=== PATIENT | female | born 1955 | race Caucasian/White ===

== ENCOUNTER → 2016-09-07 | Outpatient (CLI) | payer OTHER ==
--- NOTE | 2016-09-07 16:22 | RADIOLOGY REPORT (SQ) ---
EXAM DESCRIPTION: FOOT LEFT COMPLETE COMPLETED DATE/TIME: 09/07/2016 4:02 pm REASON FOR STUDY: PAIN IN LEFT FOOT M79.672 PAIN IN LEFT FOOT COMPARISON: None. NUMBER OF VIEWS: Three views. TECHNIQUE: AP, lateral and oblique radiographic images acquired of the left foot. LIMITATIONS: None. FINDINGS: MINERALIZATION: Normal. BONES: No acute fracture or dislocation. No worrisome bone lesions. JOINTS: No effusions. SOFT TISSUES: No soft tissue swelling. No foreign body. OTHER: No other significant finding. IMPRESSION: NEGATIVE STUDY OF THE LEFT FOOT. NO RADIOGRAPHIC EVIDENCE OF ACUTE INJURY. TECHNICAL DOCUMENTATION: JOB ID: [id number] [employer]- All Rights Reserved
[2016-09-07 17:01] LABS: ANION GAP 13 (5-19); BLOOD UREA NITROGEN 14 mg/dL (7-20); CALCIUM 8.5 mg/dL (8.4-10.2); CARBON DIOXIDE 25 mmol/L (22-30); CHLORIDE 106 mmol/L (98-107); GLUCOSE 182 mg/dL (75-110); SODIUM 143.7 mmol/L (137-145); URIC ACID 8.8 mg/dL (2.5-7.5)
[2016-09-07 18:11] LABS: POTASSIUM 2.9 mmol/L (3.6-5.0)
== END ==
LOC: OD 12:56
PROVIDERS: ATTEND Physician Assistant
DX: E87.6 Hypokalemia (principal); M79.672 Pain in left foot; R60.9 Edema, unspecified
CPT/HCPCS: 36415; 80048; 83735; 84550

== ENCOUNTER → 2016-09-11 | Outpatient (CLI) | payer OTHER ==
[2016-09-11 08:34] LABS: ANION GAP 11 (5-19); BLOOD UREA NITROGEN 14 mg/dL (7-20); CALCIUM 8.5 mg/dL (8.4-10.2); CARBON DIOXIDE 23 mmol/L (22-30); CHLORIDE 107 mmol/L (98-107); GLUCOSE 137 mg/dL (75-110); POTASSIUM 3.7 mmol/L (3.6-5.0); SODIUM 141.4 mmol/L (137-145); URIC ACID 7.9 mg/dL (2.5-7.5)
[2016-09-11 12:44] LABS: ADD ON TESTING BLD IN LAB ACKNOWLEDGE
== END ==
LOC: OD 07:22
PROVIDERS: ATTEND Physician Assistant
DX: E83.42 Hypomagnesemia (principal); E87.6 Hypokalemia; E79.0 Hyperuricemia without signs of inflammatory arthritis and tophaceous disease
CPT/HCPCS: 36415; 80048; 83735; 84550

== ENCOUNTER → 2016-09-14 | Outpatient (CLI) | payer OTHER ==
[2016-09-14 11:02] LABS: ANION GAP 11 (5-19); BLOOD UREA NITROGEN 11 mg/dL (7-20); CALCIUM 8.6 mg/dL (8.4-10.2); CARBON DIOXIDE 18 mmol/L (22-30); CHLORIDE 113 mmol/L (98-107); CREATININE RESULT 1.13 mg/dL (0.52-1.25); GLUCOSE 111 mg/dL (75-110); SODIUM 142.4 mmol/L (137-145)
[2016-09-14 11:18] LABS: MAGNESIUM 1.2 mg/dL (1.6-2.3)
== END ==
LOC: OD 09:50
PROVIDERS: ATTEND Physician Assistant
DX: E83.42 Hypomagnesemia (principal); E87.6 Hypokalemia
CPT/HCPCS: 36415; 80048; 83735

== ENCOUNTER → 2016-09-21 | Outpatient (CLI) | payer OTHER ==
[2016-09-21 11:09] LABS: ANION GAP 9 (5-19); BLOOD UREA NITROGEN 13 mg/dL (7-20); CALCIUM 8.4 mg/dL (8.4-10.2); CARBON DIOXIDE 22 mmol/L (22-30); CHLORIDE 113 mmol/L (98-107); CREATININE RESULT 1.16 mg/dL (0.52-1.25); GLUCOSE 75 mg/dL (75-110); SODIUM 143.9 mmol/L (137-145)
[2016-09-21 11:26] LABS: MAGNESIUM 1.2 mg/dL (1.6-2.3)
== END ==
LOC: OD 09:43
PROVIDERS: ATTEND Physician Assistant
DX: E55.9 Vitamin D deficiency, unspecified (principal); E83.42 Hypomagnesemia
CPT/HCPCS: 36415; 80048; 82306; 83735

== ENCOUNTER 2016-10-09 11:04 | Day surgery (SDC) | payer OTHER ==
[~2016-10-09 11:04] MED LIST: PROPOFOL INJ 200 MG/20 ML VIAL IV ONE
--- NOTE | 2016-10-09 12:56 | Operative Report ---
Operative Report DATE OF SURGERY: 10/09/16 Operative Report: The risks, benefits and alternatives of the procedure including risks of bleeding, perforation requiring surgery are explained to the patient detail and informed consent was obtained. Patient was taken back to the endoscopy suite and placed in the left, lateral decubital position. Timeout was called. Propofol medications administered. A rectal examination was done which did not reveal any masses, tears or fissures.. An Olympus videoscope was inserted into the patient's rectum. The scope was then carefully advanced all the way to the cecum. The cecum was identified by the usual anatomical landmarks including the ileocecal valve, and the appendiceal office. Prep is good. Photodocumentation was obtained. The scope was then sequentially pulled back via the various segments of the colon including the ascending colon, hepatic flexure, transverse colon, splenic flexure, descending colon, and finding to the rectosigmoid portions of the colon. Retroflexion maneuver was performed. PREOPERATIVE DIAGNOSIS: Rule out Crohn's disease. Diarrhea POSTOPERATIVE DIAGNOSIS: Mild terminal ileitis status post biopsy. Mucosal specimens obtained in the ascending colon area to rule out microscopic, lymphocytic, collagenous colitis. OPERATION: Colonoscopy with biopsy SURGEON: JEM ALAN ANESTHESIA: LMAC TISSUE REMOVED OR ALTERED: As noted above. COMPLICATIONS: None. ESTIMATED BLOOD LOSS: None. INTRAOPERATIVE FINDINGS: As noted above. PROCEDURE: Patient tolerated the procedure well. No immediate postprocedure complications are noted. Patient discharged in good condition. Discharge date 10/09/2016. Discharge diet: Regular. Discharge activity: Regular. 2-3 week follow-up to discuss findings. Patient is instructed to call the office or proceed to the emergency room should there be any further problems or questions. We will wait on pathology.
[2016-10-09 13:02] VITALS: BP 115/64
== END 2016-10-09 13:00 | disposition home or self-care (01) ==
LOC: END 11:04
PROVIDERS: ATTEND Internal Medicine Gastroenterology
PROC: 0DBF8ZX Excision of Right Large Intestine, Via Natural or Artificial Opening Endoscopic, Diagnostic (ICD-10-PCS; 2016-10-09)
PROC: 0DBB8ZX Excision of Ileum, Via Natural or Artificial Opening Endoscopic, Diagnostic (ICD-10-PCS; principal; 2016-10-09 14:00)
DX: K52.9 Noninfective gastroenteritis and colitis, unspecified (principal); K50.119 Crohn's disease of large intestine with unspecified complications; F17.210 Nicotine dependence, cigarettes, uncomplicated; I10 Essential (primary) hypertension; M19.90 Unspecified osteoarthritis, unspecified site; Z79.899 Other long term (current) drug therapy; Z88.1 Allergy status to other antibiotic agents
CPT/HCPCS: 45380; 88305 ×2; J2704; 810

== ENCOUNTER → 2016-10-12 | Outpatient (CLI) | payer OTHER ==
[2016-10-12 12:21] LABS: ANION GAP 13 (5-19); BLOOD UREA NITROGEN 20 mg/dL (7-20); CALCIUM 7.8 mg/dL (8.4-10.2); CARBON DIOXIDE 21 mmol/L (22-30); CHLORIDE 110 mmol/L (98-107); CREATININE RESULT 1.64 mg/dL (0.52-1.25); GLUCOSE 98 mg/dL (75-110); POTASSIUM 3.6 mmol/L (3.6-5.0); SODIUM 143.7 mmol/L (137-145); URIC ACID 7.7 mg/dL (2.5-7.5)
[2016-10-12 13:25] LABS: MAGNESIUM 0.9 mg/dL (1.6-2.3)
== END ==
LOC: OD 10:48
PROVIDERS: ATTEND Physician Assistant
DX: E55.9 Vitamin D deficiency, unspecified (principal); E79.0 Hyperuricemia without signs of inflammatory arthritis and tophaceous disease; E87.6 Hypokalemia
CPT/HCPCS: 36415; 80048; 82306; 83735; 84550

== ENCOUNTER → 2016-10-19 | Outpatient (CLI) | payer OTHER ==
[2016-10-19 12:39] LABS: ANION GAP 10 (5-19); BLOOD UREA NITROGEN 20 mg/dL (7-20); CALCIUM 7.8 mg/dL (8.4-10.2); CARBON DIOXIDE 28 mmol/L (22-30); CHLORIDE 105 mmol/L (98-107); CREATININE RESULT 1.12 mg/dL (0.52-1.25); GLUCOSE 81 mg/dL (75-110); POTASSIUM 3.6 mmol/L (3.6-5.0); SODIUM 143.3 mmol/L (137-145); URIC ACID 6.4 mg/dL (2.5-7.5)
[2016-10-19 13:01] LABS: MAGNESIUM 1.2 mg/dL (1.6-2.3)
== END ==
LOC: OD 10:57
PROVIDERS: ATTEND Physician Assistant
DX: E87.6 Hypokalemia (principal); E83.42 Hypomagnesemia
CPT/HCPCS: 36415; 80048; 83735; 84550

== ENCOUNTER → 2016-10-30 | Outpatient (CLI) | payer OTHER ==
[2016-10-30 08:36] LABS: ANION GAP 10 (5-19); BLOOD UREA NITROGEN 18 mg/dL (7-20); CALCIUM 8.9 mg/dL (8.4-10.2); CARBON DIOXIDE 26 mmol/L (22-30); CHLORIDE 102 mmol/L (98-107); CREATININE RESULT 1.18 mg/dL (0.52-1.25); GLUCOSE 112 mg/dL (75-110); MAGNESIUM 2.4 mg/dL (1.6-2.3); POTASSIUM 3.9 mmol/L (3.6-5.0); SODIUM 137.8 mmol/L (137-145)
== END ==
LOC: OD 07:31
PROVIDERS: ATTEND Physician Assistant
DX: E87.6 Hypokalemia (principal); E83.42 Hypomagnesemia; E83.51 Hypocalcemia
CPT/HCPCS: 36415; 80048; 83735; 83970

== ENCOUNTER → 2016-11-06 | Outpatient (CLI) | payer OTHER ==
[2016-11-06 13:14] LABS: ANION GAP 12 (5-19); BLOOD UREA NITROGEN 21 mg/dL (7-20); CALCIUM 9.6 mg/dL (8.4-10.2); CARBON DIOXIDE 29 mmol/L (22-30); CHLORIDE 101 mmol/L (98-107); GLUCOSE 125 mg/dL (75-110); PHOSPHORUS 3.2 mg/dL (2.5-4.5); URIC ACID 7.8 mg/dL (2.5-7.5)
== END ==
LOC: OD 11:39
PROVIDERS: ATTEND Physician Assistant
DX: E79.0 Hyperuricemia without signs of inflammatory arthritis and tophaceous disease (principal); E83.51 Hypocalcemia; E83.42 Hypomagnesemia; E87.6 Hypokalemia
CPT/HCPCS: 36415; 80048; 83735; 84100; 84550

== ENCOUNTER → 2016-12-29 | Outpatient (CLI) | payer OTHER ==
[2016-12-29 14:55] LABS: ABSOLUTE BASOPHILS # (AUTO) 0.1 10^3/uL (0.0-0.2); ABSOLUTE EOSINOPHILS # (AUTO) 0.3 10^3/uL (0.0-0.6); ABSOLUTE LYMPHOCYTES (AUTO) 2.9 10^3/uL (0.5-4.7); ABSOLUTE MONOCYTES (AUTO) 0.7 10^3/uL (0.1-1.4); ABSOLUTE NEUT (AUTO) 7.9 10^3/uL (1.7-8.2); BASOPHILS % (AUTO) 0.5 % (0-2); EOSINOPHILS % (AUTO) 2.4 % (0-6); HEMOGLOBIN 13.2 g/dL (12.0-15.5); HGB HCT DIFFERENCE -0.4; LYMPHOCYTES % (AUTO) 24.3 % (13-45); MEAN CORPUSCULAR HEMOGLOBIN 30.3 pg (27.0-33.4); MEAN CORPUSCULAR VOLUME 92 fl (80-97); MONOCYTES % (AUTO) 6.2 % (3-13); RED BLOOD COUNT 4.35 10^6/uL (3.72-5.28); RED CELL DISTRIBUTION WIDTH 14.5 % (11.5-14.0); SEGMENTED NEUTROPHILS % (AUTO) 66.6 % (42-78); WHITE BLOOD COUNT 11.9 10^3/uL (4.0-10.5)
[2016-12-29 15:05] LABS: APPEARANCE,URINE SLIGHTLY-CLOUDY; BILIRUBIN,URINE NEGATIVE (NEGATIVE); GLUCOSE, URINE NEGATIVE (NEGATIVE); KETONES,URINE NEGATIVE (NEGATIVE); LEUKOCYTE ESTERASE,URINE NEGATIVE (NEGATIVE); NITRITE,URINE NEGATIVE (NEGATIVE); PROTEIN,URINE NEGATIVE (NEGATIVE); URIC ACID CRYSTALS,URINE FEW /HPF; URINE SPECIFIC GRAVITY 1.018
[2016-12-29 15:14] LABS: ALBUMIN 3.8 g/dL (3.5-5.0); ANION GAP 14 (5-19); BLOOD UREA NITROGEN 17 mg/dL (7-20); CALCIUM 9.1 mg/dL (8.4-10.2); CARBON DIOXIDE 29 mmol/L (22-30); CHLORIDE 100 mmol/L (98-107); GLUCOSE 196 mg/dL (75-110); MAGNESIUM 1.3 mg/dL (1.6-2.3); PHOSPHORUS 3.7 mg/dL (2.5-4.5); POTASSIUM 3.2 mmol/L (3.6-5.0); SODIUM 142.6 mmol/L (137-145)
[2016-12-29 15:20] LABS: URINE CREATININE 147.2 mg/dL (15-278); URINE PROTEIN 11.2 mg/dL (<12)
[2016-12-29 15:37] LABS: ERYTHROCYTE SEDIMENTATION RATE 22 mm/hr (0-30)
[2016-12-31 08:38] LABS: HEPATITIS C VIRUS AB <0.1 s/co ratio (0.0-0.9)
[2016-12-31 16:37] LABS: COMPLEMENT C3 175 mg/dL (82-167); COMPLEMENT C4 38 mg/dL (14-44)
[2017-01-01 07:53] LABS: IMMUNOGLOBULIN A 113 mg/dL (87-352); PTH INTACT 52 pg/mL (15-65)
[2017-01-01 10:55] LABS: GLOMERULAR BASMENT MEMBRANE AB 3 units (0-20)
[2017-01-01 13:38] LABS: A/G RATIO 1.2 (0.7-1.7); ALBUMIN 2 3.2 g/dL (2.9-4.4); ALPHA-1-GLOBULIN 2 0.2 g/dL (0.0-0.4); GAMMA GLOBULIN 0.4 g/dL (0.4-1.8); PROTEIN TOTAL SERUM 5.8 g/dL (6.0-8.5)
[2017-01-01 13:42] LABS: VITAMIN D 25-HYDROXY 37.9 ng/mL (30.0-100.0)
[2017-01-01 15:38] LABS: ALBUMIN UR 37.6 % (.); GAMMA GLOBULIN URINE 27.8 % (.); M-SPIKE % UR Not Observed % (Not Observed)
[2017-01-02 17:37] LABS: ANTIPROTEINASE 3 (PR-3) AB <3.5 U/mL (0.0-3.5); CYTOPLASMIC (C-ANCA) <1:20 titer (Neg:<1:20)
== END ==
LOC: OD 13:58
PROVIDERS: ATTEND Internal Medicine Nephrology
DX: I12.9 Hypertensive chronic kidney disease with stage 1 through stage 4 chronic kidney disease, or unspecified chronic kidney disease (principal); N18.3 Chronic kidney disease, stage 3 (moderate); K51.90 Ulcerative colitis, unspecified, without complications
CPT/HCPCS: 36415; 80048; 81001; 82040; 82306; 82570; 82595; 82784; 83516; 83735; 83970; 84100; 84156; 84165; 84166; 85025; 85652; 86038; 86160; 86256; 86317; 86803; 86804; 87340

== ENCOUNTER 2017-03-15 10:58 | Emergency (ER) | payer OTHER ==
--- NOTE | 2017-03-15 12:01 | ER Document Report ---
ED General - General Chief Complaint: Ankle Injury Stated Complaint: FALL INJURY, RIGHT ANKLE Time Seen by Provider: 03/15/17 11:59 Mode of Arrival: Wheelchair Information source: Patient Notes: Patient is a 61-year-old female who presents with right ankle pain and swelling that occurred around 1000 this morning. She tripped and fell while [place]. She states pain is worse with weight bearing and ambulation. She denies hitting her head or LOC, she is not on any anticoagulants. She has not taken any pain medication. Otherwise doing well. TRAVEL OUTSIDE OF THE [place] IN LAST 30 DAYS: No - Related Data Allergies/Adverse Reactions: ciprofloxacin [Ciprofloxacin] Allergy (Intermediate, Verified 03/15/17 10:59) Flushing erythromycin lactobionate [From Erythrocin] Allergy (Intermediate, Verified 10:59) Flushing nitrofurantoin [From Macrodantin] Allergy (Intermediate, Verified 03/15/17 10:59 ) Difficulty breathing Penicillins Allergy (Intermediate, Verified 03/15/17 10:59) Flushing Past Medical History - General Information source: Patient - Social History Smoking Status: Current Every Day Smoker Chew tobacco use (# tins/day): No Frequency of alcohol use: None Drug Abuse: None Family History: Reviewed & Not Pertinent Patient has suicidal ideation: No Patient has homicidal ideation: No - Past Medical History Cardiac Medical History: Reports: Hx Hypertension Denies: Hx Coronary Artery Disease, Hx Heart Attack Pulmonary Medical History: Denies: Hx Asthma, Hx Bronchitis, Hx COPD, Hx Pneumonia Neurological Medical History: Denies: Hx Cerebrovascular Accident, Hx Seizures Renal/ Medical History: Denies: Hx Peritoneal Dialysis Musculoskeltal Medical History: Reports Hx Arthritis - Ostearthritis-everywhere - Immunizations Hx Diphtheria, Pertussis, Tetanus Vaccination: Yes Review of Systems - Review of Systems Constitutional: See HPI EENT: No symptoms reported Cardiovascular: No symptoms reported Respiratory: No symptoms reported Gastrointestinal: No symptoms reported Genitourinary: No symptoms reported Female Genitourinary: No symptoms reported Musculoskeletal: See HPI Skin: No symptoms reported Hematologic/Lymphatic: No symptoms reported Neurological/Psychological: No symptoms reported Physical Exam - Vital signs Vitals: Temp Pulse Resp BP Pulse Ox 98.5 F 77 16 144/70 H 100 03/15/17 11:04 03/15/17 11:04 03/15/17 11:04 03/15/17 11:04 03/15/17 11:04 - Notes Notes: PHYSICAL EXAM: CONSTITUTIONAL: Alert and oriented, well-appearing and in no acute distress. HENT: Normocephalic, atraumatic. Moist mucous membranes. EYES: Pupils equal round and reactive to light, EOM intact. Sclera anicteric, conjunctiva are normal. No entrapment. NECK: supple without lymphadenopathy. No midline tenderness or paraspinous muscle spasms. No step-offs or deformities. ROM intact. HEART: Regular rate and rhythm without murmurs. LUNGS: CTAB and equal. No wheezes, rales or rhonchi. GI: Normactive bowel sounds. Nontender, non-distended. No organomegaly. no CVAT. BACK: nontender, no paraspinous spasm, 5+/5 strengths, DTRs 2+, SLR -. EXTREMITIES: right ankle - tender to palpation to lateral malleolus with significant non-pitting edema. ROM limited 2/2 pain and swelling. Distal pulses intact. No deformity or ecchymosis. no pitting edema. No cyanosis. Cap Refill < 3 seconds. Abrasions noted to knees bilaterally. NEURO: Cranial nerves grossly intact. Normal sensory/motor exams. PSYCH: Normal mood, normal affect. SKIN: Warm and dry. Normal turgor. No rashes or lesions noted. Course - Re-evaluation Re-evalutation: 03/15/17 12:00 Patient seen and examined. She is alert and oriented, non-toxic in appearance, sitting upright in wheelchair, speaking in full sentences without difficulty. No obvious deformity, distal pulses intact. Given PO pain medication. Will obtain x-rays. 03/15/17 12:40 Reviewed imaging studies. No significant fracture, does show soft tissue swelling. Will give air splint/crutches, discuss RICE instructions and give script for pain medication. Advised to f/u with orthopedics. At this time, will discharge with return precautions and follow-up recommendations. Verbal discharge instructions given at the bedside and opportunity for questions given. Medication warnings reviewed. Patient is in agreement with this plan and has verbalized understanding of return precautions and the need for primary care follow-up in the next 24-72 hours. - Vital Signs Vital signs: Temp Pulse Resp BP Pulse Ox 98.5 F 77 16 144/70 H 100 03/15/17 11:04 03/15/17 11:04 03/15/17 11:04 03/15/17 11:04 03/15/17 11:04 - Diagnostic Test Radiology reviewed: Image reviewed, Reports reviewed Procedures - Immobilization Right Ankle Pre-Proc Neuro Vasc Exam: Normal Immobilizer type: Ankle stirrup Performed by: PCT Post-Proc Neuro Vasc Exam: Normal Alignment checked and good: Yes Discharge - Discharge Clinical Impression: Ankle sprain Qualifiers: Encounter type: initial encounter Involved ligament of ankle: other ligament Laterality: right Qualified Code(s): S93.491A - Sprain of other ligament of right ankle, initial encounter Condition: Stable Disposition: HOME, SELF-CARE Additional Instructions: SPRAIN: Your injury is a sprain. A sprain results from stretching or tearing of the ligaments, usually from a twisting injury. The ligaments will require time and protection in order to heal properly. Many sprains are quite disabling and should be taken seriously. The usual initial treatment of sprains is cold packs, elevation, and rest of the injured area. Your physician has assessed the seriousness of your ligament injury, and has outlined a treatment plan. Understand that this treatment may change, depending on how you progress. If a re-examination was recommended, it is important that you follow up as instructed. Call the doctor any time if there is severe pain, numbness, or loss of function in the injured area. SPRAINED ANKLE: Your sprained ankle results from stretching or tearing of the ligaments which support the ankle. This usually results from twisting the foot inward and under. The ligaments will require time and protection in order to heal properly. Many ankle sprains are quite disabling, and should be taken seriously. The usual treatment for an ankle sprain is cold packs; protection with tape , splints, or wraps; elevation; and staying off the ankle for at least a day. As the ankle improves, you can walk IF it's not painful to bear weight. Sports are best postponed until healing is complete. More serious sprains usually require strengthening exercises after early healing. Your physician has assessed the seriousness of the ligament injury to your ankle. However, the treatment may change, depending on how your ankle progresses. If further exams were recommended, it is important that you follow through. Call the doctor if your foot becomes numb, painful, or severely swollen. ANKLE STIRRUP SPLINT: You are to use an ankle brace called a stirrup splint. This type of brace allows you to place greater stresses on the ankle without risk of re-injury, and is often used for more severe ankle injuries such as avulsion fractures and ligament ruptures. The splint can be worn over a sock or tape. For proper support, wear the splint with a shoe over it. It's important that the splint fit properly. Adjust the heel tension, if needed. If your splint has air bladders, peel back the bottom of each air bladder, then move the Velcro attachment of the heel strap up or down. Air bladder pressure can be adjusted by pulling up the valve at the top, threading the air tube down into the main bladder, then blowing air into the bladder or squeezing it out. The two sides of the stirrup can be moved forward or back on your ankle by changing the attachment of the main straps. If you are unable to use the ankle comfortably in the splint, return for re -evaluation. USE OF CRUTCHES: The doctor has recommended that you not bear weight at this time. You will need to use crutches. Adjust the crutches so the tops come to about two inches under the armpit while you are standing upright. Use your hands -- not your armpits -- to support your weight. To get into a chair, support yourself with one crutch on the injured side. Hold the chair with the other hand, then lower yourself while putting all your weight on the good leg. Going up stairs is `good leg up, step up, then bring up crutches and bad leg.' Down stairs is `bad leg and crutches down, then bring good leg down.' If you develop numbness or swelling in an arm or hand, you are using the crutches incorrectly. Return if you are having any problems with the crutches. ICE & ELEVATION: Apply ice packs frequently against the painful area. Many different schedules are recommended, such as "20 minutes on, 20 minutes off" or "one hour ice, two hours rest." If you need to work, you may need to go longer between ice treatments. You should plan to have the area ice packed AT LEAST one- fourth of the time. The ice should be applied over the wrap, tape, or splint, or over a layer of cloth -- not directly against the skin. Some ice bags have a built-in cloth and can be put directly on the skin. Your injured part should be elevated as much as possible over the next 48 hours. Try to keep the injury above the level of the heart. Avoid use of the injured area. Elevation and rest will decrease the swelling. USE OF [id number] IBUPROFEN: Ibuprofen (Advil, Nuprin, Medipren, Motrin IB) is a medication for fever and pain control. In addition, it has anti- inflammatory effects which may be beneficial, especially in the treatment of injuries. It's best to take ibuprofen with food. Persons with ulcer disease or allergy to aspirin should notify their physician of this before taking ibuprofen. Ibuprofen can be given every four to six hours, for a total of four doses daily. Age Pain or fever dose Antiinflammatory dose 6-8 yr 200 mg (1 tab) 200 mg (1 tab) 9-11 yr 200 mg (1 tab) 200-400 mg (1-2 tab) 11-14 yr 200-400 mg (1-2 tab) 400 mg (2 tab) 15-adult 400 mg (2 tab) 600 mg (3 tab) ORAL NARCOTIC MEDICATION: You have been given a prescription for pain control. This medication is a narcotic. It's best taken with food, as nausea can result if taken on an empty stomach. Don't operate machinery or drive within six hours of taking this medication. Do not combine this medicine with alcohol, or with any medication which can cause sedation (such as cold tablets or sleeping pills) unless you get permission from the physician. Narcotics tend to cause constipation. If possible, drink plenty of fluids and eat a diet high in fiber and fruits. Please be aware that prescription narcotics also have the potential for abuse. People become addicted to these medications because of the general sense of wellbeing that they induce. This feeling along with a significant reduction in tension, anxiety, and aggression provides a stimulating seductive quality to these drugs. Once your pain is under control, we encourage you to discard your unused narcotics. FOLLOW-UP CARE: If you have been referred to a physician for follow-up care, call the physician s office for an appointment as you were instructed or within the next two days. If you experience worsening or a significant change in your symptoms, notify the physician immediately or return to the Emergency Department at any time for re-evaluation. Prescriptions: Hydrocodone/Acetaminophen [Vicodin 5-300 mg Tablet] 1 tab PO ASDIR PRN #15 tab PRN Reason: Forms: Elevated Blood Pressure Referrals: ABN PARK MD [Primary Care Provider] - Follow up in 3-5 days
[2017-03-15] MEDS ORDERED: HYDROCODONE/ACETAMINOPHEN 5-325 MG TABLET PO ONE (12:38)
--- NOTE | 2017-03-15 12:39 | RADIOLOGY REPORT (SQ) ---
EXAM DESCRIPTION: ANKLE RIGHT COMPLETE COMPLETED DATE/TIME: 03/15/2017 12:22 pm REASON FOR STUDY: s/p fall, right ankle COMPARISON: None. NUMBER OF VIEWS: Three views. TECHNIQUE: AP, lateral, and oblique radiographic images acquired of the right ankle. LIMITATIONS: None. FINDINGS: MINERALIZATION: Normal. BONES: No acute fracture or dislocation. No worrisome bone lesions. JOINTS: No effusions. SOFT TISSUES: Soft tissue swelling. OTHER: No other significant finding. IMPRESSION: Soft tissue swelling. No fracture. TECHNICAL DOCUMENTATION: JOB ID: [id number] [employer]- All Rights Reserved
[2017-03-15 13:12] VITALS: BP 146/79
== END 2017-03-15 13:12 | disposition home or self-care (01) ==
LOC: ER 10:58
DX: S93.401A Sprain of unspecified ligament of right ankle, initial encounter (principal); S80.212A Abrasion, left knee, initial encounter; S80.211A Abrasion, right knee, initial encounter; M25.571 Pain in right ankle and joints of right foot; W19.XXXA Unspecified fall, initial encounter; Y92.242 Post office as the place of occurrence of the external cause; I10 Essential (primary) hypertension; F17.200 Nicotine dependence, unspecified, uncomplicated; Z88.1 Allergy status to other antibiotic agents; Z88.0 Allergy status to penicillin
CPT/HCPCS: 99283

== ENCOUNTER → 2017-04-03 | Outpatient (CLI) | payer OTHER ==
[2017-04-03 16:09] LABS: APPEARANCE,URINE CLEAR; BILIRUBIN,URINE NEGATIVE (NEGATIVE); COLOR,URINE YELLOW; GLUCOSE, URINE NEGATIVE (NEGATIVE); KETONES,URINE NEGATIVE (NEGATIVE); LEUKOCYTE ESTERASE,URINE TRACE (NEGATIVE); NITRITE,URINE NEGATIVE (NEGATIVE); PROTEIN,URINE NEGATIVE (NEGATIVE); URINE SPECIFIC GRAVITY 1.012; UROBILINOGEN,URINE NEGATIVE mg/dL (<2.0)
[2017-04-03 16:22] LABS: ANION GAP 8 (5-19); BLOOD UREA NITROGEN 13 mg/dL (7-20); CALCIUM 9.5 mg/dL (8.4-10.2); CARBON DIOXIDE 26 mmol/L (22-30); CHLORIDE 104 mmol/L (98-107); GLUCOSE 121 mg/dL (75-110); MAGNESIUM 2.4 mg/dL (1.6-2.3); POTASSIUM 4.4 mmol/L (3.6-5.0); SODIUM 137.8 mmol/L (137-145)
[2017-04-05 12:38] LABS: CREATININE URINE 86.1 mg/dL (Not Estab.)
== END ==
LOC: OD 15:34
PROVIDERS: ATTEND Internal Medicine Nephrology
DX: N18.3 Chronic kidney disease, stage 3 (moderate) (principal); E83.42 Hypomagnesemia; R31.29 Other microscopic hematuria
CPT/HCPCS: 36415; 80048; 81001; 82043; 82570; 83735

== ENCOUNTER 2017-04-28 08:36 | Emergency (ER) | payer OTHER ==
--- NOTE | 2017-04-28 09:16 | ER Document Report ---
ED General - General Chief Complaint: Inability to Void Stated Complaint: FLANK PAIN Time Seen by Provider: 04/28/17 08:39 Mode of Arrival: Ambulatory Information source: Patient Notes: 61-year-old female history of kidney stones presents with complaints of urinary retention. Patient notes pain started initially . She denies any fevers or chills denies having been seen recently for her stones TRAVEL OUTSIDE OF THE [place] IN LAST 30 DAYS: No - HPI Onset: Other - 3 days ago Onset/Duration: Sudden Quality of pain: No pain, Sharp. denies: Dull Severity: Moderate Pain Level: 3 Associated symptoms: None Exacerbated by: Denies Relieved by: Denies, Remaining still Similar symptoms previously: Yes Recently seen / treated by doctor: No - Related Data Allergies/Adverse Reactions: ciprofloxacin [Ciprofloxacin] Allergy (Intermediate, Verified 04/28/17 08:37) Flushing erythromycin lactobionate [From Erythrocin] Allergy (Intermediate, Verified 06/10 08:37) Flushing nitrofurantoin [From Macrodantin] Allergy (Intermediate, Verified 04/28/17 08:37 ) Difficulty breathing Penicillins Allergy (Intermediate, Verified 04/28/17 08:37) Flushing Sulfa (Sulfonamide Antibiotics) Allergy (Verified 04/28/17 08:37) Past Medical History - Social History Smoking Status: Current Every Day Smoker Cigarette use (# per day): Yes Chew tobacco use (# tins/day): No Smoking Education Provided: No Frequency of alcohol use: wine nightly Drug Abuse: None Family History: Reviewed & Not Pertinent Patient has suicidal ideation: No Patient has homicidal ideation: No - Past Medical History Cardiac Medical History: Reports: Hx Hypertension Denies: Hx Coronary Artery Disease, Hx Heart Attack Pulmonary Medical History: Denies: Hx Asthma, Hx Bronchitis, Hx COPD, Hx Pneumonia Neurological Medical History: Denies: Hx Cerebrovascular Accident, Hx Seizures Renal/ Medical History: Denies: Hx Peritoneal Dialysis Musculoskeltal Medical History: Reports Hx Arthritis - Ostearthritis-everywhere Past Surgical History: Reports: Hx Hysterectomy - Immunizations Hx Diphtheria, Pertussis, Tetanus Vaccination: Yes Review of Systems - Review of Systems Notes: REVIEW OF SYSTEMS: CONSTITUTIONAL : Denies fever, chills, or sweats. Denies recent illness. EENT: Denies eye, ear, throat, or mouth pain or symptoms. Denies nasal or sinus congestion or discharge. Denies throat, tongue, or mouth swelling or difficulty swallowing. CARDIOVASCULAR: Denies chest pain. Denies palpitations or racing or irregular heart beat. Denies ankle edema. RESPIRATORY: Denies cough, cold, or chest congestion. Denies shortness of breath, difficulty breathing, or wheezing. GASTROINTESTINAL: Denies abdominal pain or distention. Denies nausea, vomiting , or diarrhea. Denies blood in vomitus, stools, or per rectum. Denies black, tarry stools. Denies constipation. GENITOURINARY: Decreased urinary output flank pain FEMALE GENITOURINARY: Denies vaginal bleeding, heavy or abnormal periods, irregular periods. Denies vaginal discharge or odor. MUSCULOSKELETAL: Denies back or neck pain or stiffness. Denies joint pain or swelling. SKIN: Denies rash, lesions or sores. HEMATOLOGIC : Denies easy bruising or bleeding. LYMPHATIC: Denies swollen, enlarged glands. NEUROLOGICAL: Denies confusion or altered mental status. Denies passing out or loss of consciousness. Denies dizziness or lightheadedness. Denies headache. Denies weakness or paralysis or loss of use of either side. Denies problems with gait or speech. Denies sensory loss, numbness, or tingling. Denies seizures. PSYCHIATRIC: Denies anxiety or stress. Denies depression, suicidal ideation, or homicidal ideation. ALL OTHER SYSTEMS REVIEWED AND NEGATIVE. PHYSICAL EXAMINATION: GENERAL: Well-appearing, well-nourished and in no acute distress. HEAD: Atraumatic, normocephalic. EYES: Pupils equal round and reactive to light, extraocular movements intact, conjunctiva are normal. ENT: Nares patent, oropharynx clear without exudates. Moist mucous membranes. NECK: Normal range of motion, supple without lymphadenopathy LUNGS: Breath sounds clear to auscultation bilaterally and equal. No wheezes rales or rhonchi. HEART: Regular rate and rhythm without murmurs ABDOMEN: Soft, nontender, nondistended abdomen. No guarding, no rebound. No masses appreciated. Female : deferred Musculoskeletal: Normal range of motion, no pitting or edema. No cyanosis. NEUROLOGICAL: Cranial nerves grossly intact. Normal speech, normal gait. Normal sensory, motor exams PSYCH: Normal mood, normal affect. SKIN: Warm, Dry, normal turgor, no rashes or lesions noted. Dictation was performed using [employer] voice recognition software Physical Exam - Vital signs Vitals: Temp Pulse Resp BP Pulse Ox 98.1 F 96 18 148/84 H 99 04/28/17 08:40 04/28/17 08:40 04/28/17 08:40 04/28/17 08:40 04/28/17 08:40 Course - Re-evaluation Re-evalutation: 04/28/17 09:30 Patient is noted to have urinary retention, probable UTI rather than the stone CT lab work pending 04/28/17 10:32 bilateral obstructing stones with hydro , creatinine 7.6 he will need immediate urology , gillian barrett paged 04/28/17 10:54 Dr Trent accepts transfer - Vital Signs Vital signs: Temp Pulse Resp BP Pulse Ox 98.4 F 65 16 138/67 H 98 04/28/17 11:53 04/28/17 11:53 04/28/17 11:53 04/28/17 11:53 04/28/17 11:53 - Laboratory Result Diagrams: 04/28/17 08:55 04/28/17 08:55 Laboratory results interpreted by me: 04/28/17 04/28/17 08:55 08:55 WBC 12.8 H Lymphocytes % 11.5 L Absolute Neutrophils 9.7 H Sodium 129.4 L Potassium 2.9 L* Chloride 82 L BUN 39 H Creatinine 7.64 H Est GFR ( Amer) 7 L Est GFR (Non-Af Amer) 5 L Glucose 125 H Critical Care Note - Critical Care Note Total time excluding time spent on procedures (mins): 41 Comments: 41 minutes of critical care time spent in direct contact evaluating and reevaluating the patient, treating symptoms, reviewing labs and studies and speaking with family and consultants excluding any procedures Discharge - Discharge Clinical Impression: Hydronephrosis with renal and ureteral calculous obstruction, Urinary retention Acute renal failure Qualifiers: Acute renal failure type: unspecified Qualified Code(s): N17.9 - Acute kidney failure, unspecified Condition: Fair Disposition: [facility] Referrals: BAN PARK MD [Primary Care Provider] - Follow up as needed
--- NOTE | 2017-04-28 09:21 | RADIOLOGY REPORT (SQ) ---
EXAM DESCRIPTION: CT LTD RENAL STONE PROTOCOL ON COMPLETED DATE/TIME: 04/28/2017 9:08 am REASON FOR STUDY: kidney stone , retention COMPARISON: None. TECHNIQUE: CT scan of the abdomen and pelvis performed without intravenous or oral contrast. Images reviewed with lung, soft tissue, and bone windows. Reconstructed coronal and sagittal MPR images revi ewed. All images stored on PACS. All CT scanners at this facility use dose modulation, iterative reconstruction, and/or weight based d osing when appropriate to reduce radiation dose to as low as reasonably achievable (ALARA). [facility]: Dose Right [facility]: CareDose [facility]: Dose Right [facility]: Teradose 4D [facility]: [employer] RADIATION DOSE: CT Rad equipment meets quality standard of care and radiation dose reduction techniq ues were employed. CTDIvol: 11.9 mGy. DLP: 658 mGy-cm.mGy. LIMITATIONS: None. FINDINGS: LOWER CHEST: No significant findings. No nodules or infiltrates. NON-CONTRASTED LIVER, SPLEEN, ADRENALS: Evaluation limited by lack of IV contrast. No identified sign ificant masses. PANCREAS: No masses. No peripancreatic inflammatory changes. GALLBLADDER: No identified stones by CT criteria. No inflammatory changes to suggest cholecystitis. RIGHT KIDNEY AND URETER: No suspicious masses. Assessment limited by lack of IV contrast. 8 mm ston e UPJ measuring about 394 HU. Additional stones in the lower pole. Mild -moderate hydronephrosis. LEFT KIDNEY AND URETER: No suspicious masses. Assessment limited by lack of IV contrast. 9 mm stone in the UPJ measuring about 390 HU. Additional stones in the lower pole. Mild -not hydronephrosis. AORTA AND RETROPERITONEUM: No aneurysm. No retroperitoneal masses or adenopathy. BOWEL AND PERITONEAL CAVITY: No obvious masses or inflammatory changes. No free fluid. APPENDIX: Not visualized. PELVIS, BLADDER, AND ABDOMINAL WALL:Small umbilical hernia. BONES: No significant findings. OTHER: No other significant finding. IMPRESSION: Bilateral UPJ stones with mild -moderate hydronephrosis. COMMENT: Quality ID # [id number]: Final reports with documentation of one or more dose reduction techniques (e.g., Automated exposure control, adjustment of the mA and/or kV according to patient size, use of iterative reconstruction technique) TECHNICAL DOCUMENTATION: JOB ID: [id number]- All Rights Reserved
[2017-04-28 09:23] LABS: ABSOLUTE BASOPHILS # (AUTO) 0.1 10^3/uL (0.0-0.2); ABSOLUTE EOSINOPHILS # (AUTO) 0.4 10^3/uL (0.0-0.6); ABSOLUTE LYMPHOCYTES (AUTO) 1.5 10^3/uL (0.5-4.7); ABSOLUTE MONOCYTES (AUTO) 1.1 10^3/uL (0.1-1.4); ABSOLUTE NEUT (AUTO) 9.7 10^3/uL (1.7-8.2); BASOPHILS % (AUTO) 0.5 % (0-2); EOSINOPHILS % (AUTO) 2.9 % (0-6); HEMATOCRIT 41.8 % (36.0-47.0); HEMOGLOBIN 14.1 g/dL (12.0-15.5); LYMPHOCYTES % (AUTO) 11.5 % (13-45); MEAN CORPUSCULAR HEMOGLOBIN 29.2 pg (27.0-33.4); MEAN CORPUSCULAR HGB CONC 33.8 g/dL (32.0-36.0); MEAN CORPUSCULAR VOLUME 86 fl (80-97); MONOCYTES % (AUTO) 8.9 % (3-13); PLATELET COUNT 263 10^3/uL (150-450); RED BLOOD COUNT 4.83 10^6/uL (3.72-5.28); RED CELL DISTRIBUTION WIDTH 13.9 % (11.5-14.0); SEGMENTED NEUTROPHILS % (AUTO) 76.2 % (42-78); TOTAL CELLS COUNTED % (AUTO) 100 %; WHITE BLOOD COUNT 12.8 10^3/uL (4.0-10.5)
[2017-04-28] MEDS ORDERED: NORMAL SALINE 1000 ML 1,000 ML IV ONE (09:35)
[2017-04-28 09:48] LABS: ALANINE AMINOTRANSFERASE 21 U/L (9-52); ALBUMIN 4.2 g/dL (3.5-5.0); ALKALINE PHOSPHATASE 114 U/L (38-126); ANION GAP 17 (5-19); ASPARTATE AMINO TRANSFERASE 18 U/L (14-36); BILIRUBIN,DIRECT 0.2 mg/dL (0.0-0.4); BILIRUBIN,TOTAL 0.4 mg/dL (0.2-1.3); BLOOD UREA NITROGEN 39 mg/dL (7-20); CALCIUM 9.3 mg/dL (8.4-10.2); CARBON DIOXIDE 30 mmol/L (22-30); CHLORIDE 82 mmol/L (98-107); GLUCOSE 125 mg/dL (75-110); LIPASE 97.1 U/L (23-300); SODIUM 129.4 mmol/L (137-145); TOTAL PROTEIN 6.5 g/dL (6.3-8.2)
[2017-04-28 09:59] LABS: POTASSIUM 2.9 mmol/L (3.6-5.0)
[2017-04-28] MEDS ORDERED: POTASSIUM CHLORIDE 10 MEQ TABLET.SA PO ONE (10:00)
[2017-04-28] MEDS ORDERED: POTASSI CL 40 MEQ/NS 1L 1,000 ML IV ONE (10:00)
[2017-04-28] MEDS ORDERED: ONDANSETRON HCL INJ/PF 4 MG/2 ML SDV IV ONE (11:19)
[2017-04-28] MEDS ORDERED: MORPHINE SULFATE 10 MG/ML INJ IV ONE (11:19)
[2017-04-28 11:39] VITALS: BP 138/67
== END 2017-04-28 11:54 | disposition short-term general hospital (02) ==
LOC: ER 08:36
DX: N13.2 Hydronephrosis with renal and ureteral calculous obstruction (principal); R33.9 Retention of urine, unspecified; N17.9 Acute kidney failure, unspecified; R10.9 Unspecified abdominal pain; F17.210 Nicotine dependence, cigarettes, uncomplicated; I10 Essential (primary) hypertension; Z88.3 Allergy status to other anti-infective agents; Z88.2 Allergy status to sulfonamides; Z88.0 Allergy status to penicillin; Z90.710 Acquired absence of both cervix and uterus
CPT/HCPCS: 99291; 96361; 51702; 96374; 96375; 36415; 83690; 85025; 80053; 76380; J2270; J2405; J7030

== ENCOUNTER → 2017-05-04 | Outpatient (CLI) | payer OTHER ==
[2017-05-04 14:50] LABS: HEMATOCRIT 37.9 % (36.0-47.0); HEMOGLOBIN 12.4 g/dL (12.0-15.5); MEAN CORPUSCULAR HEMOGLOBIN 29.2 pg (27.0-33.4); MEAN CORPUSCULAR HGB CONC 32.7 g/dL (32.0-36.0); MEAN CORPUSCULAR VOLUME 89 fl (80-97); PLATELET COUNT 325 10^3/uL (150-450); RED BLOOD COUNT 4.24 10^6/uL (3.72-5.28); RED CELL DISTRIBUTION WIDTH 14.2 % (11.5-14.0); WHITE BLOOD COUNT 9.5 10^3/uL (4.0-10.5)
[2017-05-04 15:08] LABS: ANION GAP 9 (5-19); BLOOD UREA NITROGEN 20 mg/dL (7-20); CALCIUM 9.7 mg/dL (8.4-10.2); CARBON DIOXIDE 25 mmol/L (22-30); CHLORIDE 109 mmol/L (98-107); GLUCOSE 86 mg/dL (75-110); SODIUM 143.3 mmol/L (137-145)
== END ==
LOC: OD 13:57
PROVIDERS: ATTEND Urology
DX: N20.0 Calculus of kidney (principal)
CPT/HCPCS: 36415; 80048; 85027

== ENCOUNTER → 2017-06-08 | Outpatient (CLI) | payer OTHER ==
[2017-06-08 14:17] LABS: ABSOLUTE BASOPHILS # (AUTO) 0.1 10^3/uL (0.0-0.2); ABSOLUTE EOSINOPHILS # (AUTO) 0.5 10^3/uL (0.0-0.6); ABSOLUTE LYMPHOCYTES (AUTO) 2.6 10^3/uL (0.5-4.7); ABSOLUTE NEUT (AUTO) 6.1 10^3/uL (1.7-8.2); BASOPHILS % (AUTO) 1.1 % (0-2); HEMATOCRIT 34.7 % (36.0-47.0); HEMOGLOBIN 11.6 g/dL (12.0-15.5); LYMPHOCYTES % (AUTO) 25.3 % (13-45); MEAN CORPUSCULAR HEMOGLOBIN 30.1 pg (27.0-33.4); MEAN CORPUSCULAR HGB CONC 33.4 g/dL (32.0-36.0); MEAN CORPUSCULAR VOLUME 90 fl (80-97); MONOCYTES % (AUTO) 9.5 % (3-13); PLATELET COUNT 243 10^3/uL (150-450); RED BLOOD COUNT 3.86 10^6/uL (3.72-5.28); RED CELL DISTRIBUTION WIDTH 14.7 % (11.5-14.0); SEGMENTED NEUTROPHILS % (AUTO) 59.1 % (42-78); TOTAL CELLS COUNTED % (AUTO) 100 %; WHITE BLOOD COUNT 10.4 10^3/uL (4.0-10.5)
[2017-06-08 14:41] LABS: ANION GAP 8 (5-19); BLOOD UREA NITROGEN 13 mg/dL (7-20); CALCIUM 9.3 mg/dL (8.4-10.2); CARBON DIOXIDE 24 mmol/L (22-30); CHLORIDE 107 mmol/L (98-107); GLUCOSE 82 mg/dL (75-110); POTASSIUM 4.1 mmol/L (3.6-5.0); SODIUM 138.9 mmol/L (137-145)
== END ==
LOC: OD 13:16
PROVIDERS: ATTEND Urology
DX: N20.0 Calculus of kidney (principal)
CPT/HCPCS: 36415; 80048; 85025

== ENCOUNTER → 2018-06-27 | Outpatient (CLI) | payer OTHER ==
[2018-06-27 10:45] LABS: ALANINE AMINOTRANSFERASE 23 U/L (9-52); ALBUMIN 3.5 g/dL (3.5-5.0); ALKALINE PHOSPHATASE 95 U/L (38-126); ASPARTATE AMINO TRANSFERASE 17 U/L (14-36); BILIRUBIN,DIRECT 0.2 mg/dL (0.0-0.4); BILIRUBIN,TOTAL 0.4 mg/dL (0.2-1.3); CHOLESTEROL 273.04 mg/dL (0-200); TOTAL PROTEIN 5.9 g/dL (6.3-8.2); TRIGLYCERIDES 261 mg/dL (<150)
[2018-06-27 10:57] LABS: DIRECT LDL 176 mg/dL (<100)
[2018-06-27 11:02] LABS: VLDL CHOLESTEROL 52.2 mg/dL (10-31)
== END ==
LOC: OD 09:25
PROVIDERS: ATTEND Specialist
DX: I34.1 Nonrheumatic mitral (valve) prolapse (principal); I47.1 Supraventricular tachycardia; I10 Essential (primary) hypertension; E78.5 Hyperlipidemia, unspecified; Z79.899 Other long term (current) drug therapy
CPT/HCPCS: 36415; 80061; 80076

== ENCOUNTER → 2018-10-01 | Outpatient (CLI) | payer OTHER ==
[2018-10-01 11:10] LABS: ALANINE AMINOTRANSFERASE 20 U/L (9-52); ALBUMIN 3.9 g/dL (3.5-5.0); ALKALINE PHOSPHATASE 106 U/L (38-126); ANION GAP 8 (5-19); ASPARTATE AMINO TRANSFERASE 16 U/L (14-36); BILIRUBIN,DIRECT 0.3 mg/dL (0.0-0.4); BILIRUBIN,TOTAL 0.4 mg/dL (0.2-1.3); BLOOD UREA NITROGEN 10 mg/dL (7-20); CARBON DIOXIDE 25 mmol/L (22-30); CHLORIDE 109 mmol/L (98-107); CHOLESTEROL 205.11 mg/dL (0-200); GLUCOSE 106 mg/dL (75-110); POTASSIUM 3.7 mmol/L (3.6-5.0); SODIUM 142.2 mmol/L (137-145); TOTAL PROTEIN 6.1 g/dL (6.3-8.2); TRIGLYCERIDES 235 mg/dL (<150)
[2018-10-01 11:21] LABS: DIRECT LDL 134 mg/dL (<100)
== END ==
LOC: OD 10:02
PROVIDERS: ATTEND Specialist
DX: I34.1 Nonrheumatic mitral (valve) prolapse (principal); I47.1 Supraventricular tachycardia; I10 Essential (primary) hypertension; E78.49 Other hyperlipidemia; Z79.899 Other long term (current) drug therapy
CPT/HCPCS: 36415; 80048; 80061; 80076

== ENCOUNTER → 2019-06-13 | Outpatient (CLI) | payer BC | LOC: OD 08:17 | PROVIDERS: ATTEND Specialist | DX: I34.1 Nonrheumatic mitral (valve) prolapse (principal); I47.1 Supraventricular tachycardia; I10 Essential (primary) hypertension; E78.49 Other hyperlipidemia; Z79.899 Other long term (current) drug therapy | CPT/HCPCS: 36415; 84132 ==

== ENCOUNTER → 2019-06-17 | Outpatient (CLI) | payer BC ==
[2019-06-17 12:21] LABS: ANION GAP 14 (5-19); BLOOD UREA NITROGEN 24 mg/dL (7-20); CARBON DIOXIDE 24 mmol/L (22-30); CHLORIDE 98 mmol/L (98-107); GLUCOSE 84 mg/dL (75-110); POTASSIUM 3.1 mmol/L (3.6-5.0)
[2019-06-17 12:37] LABS: CALCIUM 6.3 mg/dL (8.4-10.2)
== END ==
LOC: OD 11:37
PROVIDERS: ATTEND Specialist
DX: I34.1 Nonrheumatic mitral (valve) prolapse (principal); I47.1 Supraventricular tachycardia; E78.49 Other hyperlipidemia; I10 Essential (primary) hypertension; E87.6 Hypokalemia; Z79.899 Other long term (current) drug therapy
CPT/HCPCS: 36415; 80048; 82330; 83735

== ENCOUNTER 2019-06-24 23:53 | Inpatient (IN) | payer BC ==
[2019-06-25 00:17] LABS: ABSOLUTE BASOPHILS # (AUTO) 0.2 10^3/uL (0.0-0.2); ABSOLUTE EOSINOPHILS # (AUTO) 0.2 10^3/uL (0.0-0.6); ABSOLUTE LYMPHOCYTES (AUTO) 3.8 10^3/uL (0.5-4.7); ABSOLUTE MONOCYTES (AUTO) 1.4 10^3/uL (0.1-1.4); ABSOLUTE NEUT (AUTO) 11.8 10^3/uL (1.7-8.2); BASOPHILS % (AUTO) 1.3 % (0-2); EOSINOPHILS % (AUTO) 1.4 % (0-6); HEMATOCRIT 41.1 % (36.0-47.0); HEMOGLOBIN 14.3 g/dL (12.0-15.5); MEAN CORPUSCULAR HGB CONC 34.9 g/dL (32.0-36.0); MEAN CORPUSCULAR VOLUME 89 fl (80-97); MONOCYTES % (AUTO) 7.9 % (3-13); PLATELET COUNT 301 10^3/uL (150-450); RED BLOOD COUNT 4.63 10^6/uL (3.72-5.28); RED CELL DISTRIBUTION WIDTH 12.7 % (11.5-14.0); SEGMENTED NEUTROPHILS % (AUTO) 67.4 % (42-78); TOTAL CELLS COUNTED % (AUTO) 100 %; WHITE BLOOD COUNT 17.5 10^3/uL (4.0-10.5)
[2019-06-25] MEDS ORDERED: LORAZEPAM INJ 2 MG/1 ML VIAL IV ONE (00:23)
--- NOTE | 2019-06-25 00:28 | ER Document Report ---
ED General - General Chief Complaint: Other Stated Complaint: CRAMPING FACIAL TWITCHING Time Seen by Provider: 06/25/19 00:17 Notes: Patient is a 64-year-old female that comes emergency department for chief complaint of severe cramps mainly in her arms but also in her legs making it difficult to walk. She states this started at 6 PM tonight, she states that she cannot straighten her wrists or her hands and she is very uncomfortable. She st ates also that her face keeps twitching. Patient does have a notable twitch on the right side of her face on exam. On further questioning patient does admit to very frequent diarrhea, she has had this long-term, she has a history of ulcerative colitis reportedly and is on no medications for this. She was supposed be on infusions but this has not been worked out financially. She also has a history of hypertension on metoprolol, hyperlipidemia, denies medical history otherwise. She denies chest pain, shortness of breath, fever, headache, or any other complaints. TRAVEL OUTSIDE OF THE [place] IN LAST 30 DAYS: No - Related Data Allergies/Adverse Reactions: ciprofloxacin [Ciprofloxacin] Allergy (Intermediate, Verified 06/25/19 00:02) Flushing erythromycin lactobionate [From Erythrocin] Allergy (Intermediate, Verified 04/14 00:02) Flushing nitrofurantoin [From Macrodantin] Allergy (Intermediate, Verified 06/25/19 00: 02) Difficulty breathing Penicillins Allergy (Intermediate, Verified 06/25/19 00:02) Flushing Sulfa (Sulfonamide Antibiotics) Allergy (Verified 06/25/19 00:02) Past Medical History - General Information source: Patient - Social History Smoking Status: Never Smoker Frequency of alcohol use: None Drug Abuse: None Lives with: Family Family History: Reviewed & Not Pertinent Patient has suicidal ideation: No Patient has homicidal ideation: No - Past Medical History Cardiac Medical History: Reports: Hx Hypertension Denies: Hx Coronary Artery Disease, Hx Heart Attack Pulmonary Medical History: Denies: Hx Asthma, Hx Bronchitis, Hx COPD, Hx Pneumonia Neurological Medical History: Denies: Hx Cerebrovascular Accident, Hx Seizures Renal/ Medical History: Denies: Hx Peritoneal Dialysis GI Medical History: Reports: Hx Ulcerative Colitis Musculoskeletal Medical History: Reports Hx Arthritis - Ostearthritis-everywhere Past Surgical History: Reports: Hx Hysterectomy - Immunizations Hx Diphtheria, Pertussis, Tetanus Vaccination: Yes Review of Systems - Review of Systems Constitutional: See HPI EENT: No symptoms reported Cardiovascular: No symptoms reported Respiratory: No symptoms reported Gastrointestinal: See HPI Genitourinary: No symptoms reported Female Genitourinary: No symptoms reported Musculoskeletal: See HPI Skin: No symptoms reported Hematologic/Lymphatic: No symptoms reported Neurological/Psychological: See HPI Physical Exam - Vital signs Vitals: Resp Pulse Ox 17 100 06/25/19 00:00 06/25/19 00:00 - Notes Notes: GENERAL: Alert but uncomfortable HEAD: Normocephalic, atraumatic. EYES: Pupils equal, round, and reactive to light. Extraocular movements intact. ENT: Positive Chvostek sign especially on the right. Quivering facial muscles on the right. Oral mucosa moist, tongue midline. Oropharynx unremarkable. Airway patent. Nares patent, sinuses non-tender NECK: Full range of motion. Supple. Trachea midline. No lymphadenopathy. LUNGS: Clear to auscultation bilaterally, no wheezes, rales, or rhonchi. No respiratory distress. Non-tender chest wall. HEART: Regular rate and rhythm. No murmur ABDOMEN: Soft, non-tender. Non-distended. Bowel sounds present in all 4 quadrants. GENITOURINARY: Deferred EXTREMITIES: Patient with rigid muscles, inability to straighten the wrists or the fingers, muscle spasms in the feet and legs as well. Normal distal pulses and sensation. Some tetany/rigidity. BACK: no cervical, thoracic, lumbar midline tenderness. No saddle anesthesia, normal distal neurovascular exam. Moves all extremities in full range of motion. NEUROLOGICAL: Alert and oriented x3. Normal speech. Cranial nerves II through XII grossly intact. Strength 5/5 in all extremities. PSYCH: Patient appears uncomfortable SKIN: Warm, dry, normal turgor. No rashes or lesions noted. Course - Re-evaluation Re-evalutation: On my initial evaluation patient obviously uncomfortable, appears to have tetany, she cannot straighten her wrists or move her hands, she was unable to walk and came in by EMS. However she is alert, conversational. She does have positive Chvostek sign and occasional twitching of her facial muscle involuntarily. Based on her reported history of chronic diarrhea with untreated ulcerative colitis I suspect she has severe electrolyte derangements, starting on magnesium, given Ativan. Calcium is 5.9, magnesium 0.4, ionized calcium pending. After initial calcium gluconate, magnesium, Ativan patient is already improving, reduced tetany but still has inability to straighten out her hands or wrists. She appears much more comfortable and states she is much more comfortable. EKG does show prolonged QTC at [address] segment depressions anteriorly. Troponin negative, she has no chest pain, no abdominal pain, soft benign abdomen. She does have leukocytosis but I suspect this from the diarrhea based on her lack of abdominal complaints and benign abdomen. Chemistry also shows elevated creatinine at 2.3. Starting slow fluids. Potassium 3.3. 06/25/19 01:[address] Darnell, hospitalist, he requests I speak to ICU first, if the except the patient to let him know, otherwise he will accept patient to his service on the [facility]. Called and spoke with Julio C Dickinson NP on-call for the loan processor, he states he will review the chart and call me back. 06/25/19 Julio C Dickinson [employer] TECHNICIAN evaluate the patient, does not feel patient meets ICU criteria, recommends bolus of lactated Ringer's, large amount of additional magnesium, states he will write recommendations in a note. I called back and spoke with Dr. Darnell, he states he accepts the patient to his service. Patient states understanding and agreement. - Vital Signs Vital signs: Temp Pulse Resp BP Pulse Ox 97.7 F 84 18 110/75 87 L 06/25/19 04:33 06/25/19 04:33 06/25/19 04:33 06/25/19 04:33 06/25/19 04:33 - Laboratory Result Diagrams: 06/25/19 00:08 06/25/19 00:08 Laboratory results interpreted by me: 06/25/19 06/25/19 06/25/19 00:08 00:08 00:08 WBC 17.5 H Absolute Neuts (auto) 11.8 H Sodium 132.4 L Potassium 3.3 L Chloride 94 L Carbon Dioxide 21 L BUN 32 H Creatinine 2.30 H Est GFR ( Amer) 26 L Est GFR (MDRD) Non-Af 21 L Glucose 119 H Calcium 5.9 L* Ionized Calcium Kofi Magnesium 0.4 L* Ur Leukocyte Esterase Urine Ascorbic Acid 06/25/19 06/25/19 02:12 02:39 WBC Absolute Neuts (auto) Sodium Potassium Chloride Carbon Dioxide BUN Creatinine Est GFR ( Amer) Est GFR (MDRD) Non-Af Glucose Calcium Ionized Calcium Kofi 0.89 L Magnesium Ur Leukocyte Esterase MODERATE H Urine Ascorbic Acid 40 H - EKG Interpretation by Me Additional EKG results interpreted by me: EKG shows sinus rhythm at a rate of 99, QTC prolonged at 509, normal axis. There are some depressions in the ST segment in the anterior leads. No T wave inversions. There is some artifact. Critical Care Note - Critical Care Note Total time excluding time spent on procedures (mins): 35 - Tetany, hypomagnesemia, hypocalcemia, hypokalemia, QTC prolongation, acute renal failure Comments: Please allow 35 minutes of critical care time for evaluation and management of patient with tetany with hypomagnesemia, hypocalcemia, hypokalemia. Patient also with acute renal failure and QTC prolongation. Multiple re-evaluations were performed, time spent discussing with patient, hospitalist, loan processor practitioner. Interventions including Ativan, magnesium, calcium, potassium, IV fluids. Discharge - Discharge Clinical Impression: Tetany, Hypocalcemia, Hypomagnesemia, Weakness Diarrhea Qualifiers: Diarrhea type: unspecified type Qualified Code(s): R19.7 - Diarrhea, unspecified Condition: Stable Disposition: ADMITTED INPATIENT Admitting Provider: Carie (Hospitalist) Unit Admitted: [facility]
[2019-06-25 00:32] LABS: ALBUMIN 4.4 g/dL (3.5-5.0); ALKALINE PHOSPHATASE 115 U/L (38-126); ANION GAP 17 (5-19); ASPARTATE AMINO TRANSFERASE 26 U/L (14-36); BILIRUBIN,DIRECT 0.3 mg/dL (0.0-0.4); BILIRUBIN,TOTAL 0.4 mg/dL (0.2-1.3); BLOOD UREA NITROGEN 32 mg/dL (7-20); CARBON DIOXIDE 21 mmol/L (22-30); CHLORIDE 94 mmol/L (98-107); GLUCOSE 119 mg/dL (75-110); POTASSIUM 3.3 mmol/L (3.6-5.0); TOTAL PROTEIN 7.3 g/dL (6.3-8.2)
[2019-06-25] MEDS: MAGNESIUM SULFATE/D5W 1 GM/100 ML RTUPB IV SCH ×6 (00:36→13:05)
[2019-06-25 00:44] LABS: CALCIUM 5.9 mg/dL (8.4-10.2)
[2019-06-25] MEDS ORDERED: CALCIUM GLUCONATE 1000 MG/10 ML INJ IV ONE ×2 (00:45→01:40)
--- NOTE | 2019-06-25 01:17 | RADIOLOGY REPORT (SQ) ---
EXAM DESCRIPTION: XR CHEST 1 VIEW COMPLETED DATE/TME: 06/25/2019 00:24 CLINICAL HISTORY: 64 years, Female, weakness COMPARISON: None. NUMBER OF VIEWS: 1 TECHNIQUE: Portable chest LIMITATIONS: None. FINDINGS: The heart size is normal. Osteopenia. Lungs clear. No pneumothorax IMPRESSION: No acute cardiopulmonary process copyright 2010 [employer]- All Rights Reserved
[2019-06-25] MEDS ORDERED: NORMAL SALINE 1000 ML 1,000 ML IV PRN (01:47)
[2019-06-25] MEDS: POTASSI CL 20 MEQ/50 ML RIDER 20 MEQ/50 ML RTUPB IV SCH ×4 (01:56→17:39)
[2019-06-25] MEDS ORDERED: NORMAL SALINE 1000 ML 1,000 ML IV ONE (02:09)
[2019-06-25 02:21] LABS: APPEARANCE,URINE SLIGHTLY-CLOUDY; BILIRUBIN,URINE NEGATIVE (NEGATIVE); COLOR,URINE YELLOW; GLUCOSE, URINE NEGATIVE (NEGATIVE); KETONES,URINE NEGATIVE (NEGATIVE); LEUKOCYTE ESTERASE,URINE MODERATE (NEGATIVE); NITRITE,URINE NEGATIVE (NEGATIVE); PROTEIN,URINE NEGATIVE (NEGATIVE); UROBILINOGEN,URINE NEGATIVE mg/dL (<2.0)
[2019-06-25] MEDS ORDERED: RINGERS SOLUTION,LACTATED 1,000 ML IV ONE (02:30)
[2019-06-25] MEDS ORDERED: MAG HYDROX/AL HYDROX/SIMETH SUSP 30 ML UDCUP PO PRN (03:06)
[2019-06-25] MEDS ORDERED: ONDANSETRON HCL INJ/PF 4 MG/2 ML SDV IV PRN (03:06)
[2019-06-25] MEDS ORDERED: MORPHINE SULFATE 10 MG/ML INJ IV PRN ×3 (03:14)
[2019-06-25] MEDS ORDERED: METHYLPREDNISOLONE INJ 125 MG/2 ML SDV IV ONE (03:14)
[2019-06-25] MEDS ORDERED: ACETAMINOPHEN 325 MG TABLET PO PRN (03:14)
[2019-06-25] MEDS ORDERED: LORAZEPAM INJ 2 MG/1 ML VIAL IV PRN (03:14)
--- NOTE | 2019-06-25 04:18 | Progress Note ---
Provider Note Provider Note: Mrs. Lynn is a 64 year-old female with past medical history significant for mitral valve insufficiency which she has had since she was a child, HTN, HLD, and ulcerative colitis for which she has chronic diarrhea who presented with severe cramps in arms and legs since 18:00 PM making ambulation difficult as well as tetany to CN VII. Unfortunately, the expense of IV infusion therapy limits her ability to manage her ulcerative colitis symptoms. She denies chest pain, shortness of breath, fever, headache, or any other complaints. Workup revealed significant electrolyte abnormalities including hypomagnesemia, hypocalcemia, hypokalemia, and JEANNETTE likely from dehydration for which she has already received some Magnesium, Calcium, started on maintenance hydration fluids, and is due to receive Potassium. Her symptoms have already drastically improved with resolution of tetany, she is now able to move all joints without cramping, and was able to ambulate to the bathroom without difficulty right before I saw her. I was asked to evaluate Mrs. Lynn for admission to the ICU at the request of Dr Darnell. Focused physical exam: Constitutional: appears stated age, well-nourished, not ill-appearing Neuro: A&O x4, no focal deficits, no tetany at this time, no pain, NAD Pulm: CTA bilaterally, chest expansion symmetrical CV: S1, S2, S3. No LE edema, palpable pulses GI: active, soft, non-distended, non-tender Significant Labs: WBC 17 Serum Ca+ is 5.9 Mg+ is 0.4 K+ is 3.3 Na+ is 133 Cl- is 97 BUN 32 Cr 2.3 Troponin is normal range Imaging: Dsetk-fr-qftk-ultrasound performed by myself demonstrates significant hypovolemia with respirophasic changes of IVC and bilateral ventricles with changes in intrathoracic pressure. The ventricles are extremely under-filled and IVC collapses 100% when the sniff test was performed. No significant ventricular wall motion abnormalities identified, leading me to believe the ST depression is related to hypovolemia. EKG with ST depression in precordial leads, a lot of motion artifact in inferior wall segments, prolonged QT interval. Assessment: -Hypocalcemia -Hypomagnesemia -Hypokalemia -Hypovolemic Hyponatremia -Hypochloremia -Acute kidney injury due to dehydration from chronic diarrhea -Ulcerative colitis with chronic diarrhea -Prolonged QT interval on EKG can be explained by hypocalcemia -ST depression can be explained by hypokalemia as well as demand ischemia from severe volume contraction reducing coronary artery perfusion Recommendations: -Administer 1L Ringer's Lactate as wide open IV fluid bolus x1 now, followed by maintenance IV fluid of LR at 200 mL/hr for 1L (5 hr infusion), then decreasing maintenance rate to 100 mL/hr. -check ionized calcium and replete with Ca+ Gluconate to > 0.95 mmol/L -10 grams of IV Magnesium this AM and repeat serum Mg+ 06/26/2019 allowing time for serum Mg+ level to equilibrate; expect patient to require more tomorrow AM with goal of > 2 mg/dL -check phosphorus level in AM after hydrated -replete K+ with 40 mEq KCl IV -BMP later this morning after hydration and again in AM on 06/26/2019 -may consider C-diff toxin assay to R/O Cdiff infection, however, leukocytosis may be from hemoconcentration given dehydration when I look back at previous admission lab work H&H. -recommend repeating EKG later this morning after potassium repleted and has received at least 1-2L of IV fluid. -start diet -Telemetry while electrolytes infusing Disposition: patient does not need ICU care at this time. Okay for patient to go to regular telemetry bed given her rapid improvement in symptoms with Calcium and Magnesium that she has already received. Discussed with Onel Guzman, emergency room PA. Critical care time spent: 25 minutes
--- NOTE | 2019-06-25 05:27 | PDOC H&P ---
History of Present Illness Admission Date/PCP: 06/25/2019 02:45 BALDEMAR SNEED MD Patient complains of: Muscle cramping History of Present Illness: KAILA GLORIA is a 64 year old female who presented to the emergency room with a history of the sudden onset of 6-hours of constant, progressively worsening, severe muscle cramping in the distal musculature of her upper and lower extremities resulting in severe spasms and pain in her hands and feet. The cramping has been accompanied by a severe twitching of her right facial musculature. The cramping is associated with recent severe frequent watery diarrhea stools secondary to her chronic ulcerative colitis for which she is not receiving any current therapy. She is unable to ambulate due to the pain and cramping in her lower extremities and feet. She denies other associated or accompanying signs and symptoms. She denies prior similar episodes. She has not identified any aggravating or ameliorating factors for her muscular cramping. In the emergency room she was found to have a calcium of 5.9, a magnesium of 0.4 and a creatinine of 2.3. She was subsequently admitted to the hospital on IMCU for further evaluation and treatment. Past Medical History Cardiac Medical History: Reports: Hypertension Denies: Atrial Fibrillation, Coronary Artery Disease, Myocardial Infarction, Hyperlipidema Pulmonary Medical History: Denies: Asthma, Bronchitis, Chronic Obstructive Pulmonary Disease (COPD), Pneumonia EENT Medical History: Denies: Cataracts, Ears - Hearing aids Neurological Medical History: Denies: Hemorrhagic CVA, Ischemic CVA, Seizures Endocrine Medical History: Denies: Diabetes Mellitus Type 1, Diabetes Mellitus Type 2, Hyperthyroidism, Hypothyroidism Renal/ Medical History: Reports: Nephrolithiasis Denies: Chronic Kidney Disease Malignancy Medical History: Reports: None GI Medical History: Reports: Ulcerative Colitis Denies: Cirrhosis, Crohn's Disease, Hepatitis Musculoskeltal Medical History: Reports: Arthritis - Ostearthritis-everywhere Denies: Gout Skin Medical History: Denies: Eczema, Psoriasis Psychiatric Medical History: Denies: Alcohol Dependency, Substance Abuse, Tobacco Dependency Traumatic Medical History: Reports: None Hematology: Denies: Anemia, Bleeding Tendencies Infectious Medical History: Reports: None Past Surgical History Past Surgical History: Reports: Hysterectomy, Tonsillectomy, Other - Colonoscopy Social History Information Source: Patient Lives with: Spouse/Significant other Smoking Status: Never Smoker Electronic Cigarette use?: No Frequency of Alcohol Use: None Hx Recreational Drug Use: No Drugs: None Hx Prescription Drug Abuse: No - Advance Directive Resuscitation Status: Full Code Surrogate healthcare decision maker:: Wade Gloria Family History Family History: Hypertension. denies: CAD, DM, Malignancy Parental Family History Reviewed: Yes Children Family History Reviewed: No Sibling(s) Family History Reviewed.: Yes Medication/Allergy Home Medications: Metoprolol Tartrate 25 mg PO BID 10/09/16 Hydrocodone/Acetaminophen [Vicodin 5-300 mg Tablet] 1 tab PO ASDIR PRN #15 tab 03/15/17 Potassium Citrate/Citric Acid [Potassium Cit-Citric Acid Soln] 10 ml PO BID 06/25/19 Rosuvastatin Calcium 40 mg PO QHS 06/25/19 Allergies/Adverse Reactions: ciprofloxacin [Ciprofloxacin] Allergy (Intermediate, Verified 06/25/19 00:02) Flushing erythromycin lactobionate [From Erythrocin] Allergy (Intermediate, Verified 06/25/19 00:02) Flushing nitrofurantoin [From Macrodantin] Allergy (Intermediate, Verified 06/25/19 00:02) Difficulty breathing Penicillins Allergy (Intermediate, Verified 06/25/19 00:02) Flushing Sulfa (Sulfonamide Antibiotics) Allergy (Verified 06/25/19 00:02) Review of Systems Constitutional: ABSENT: chills, fever(s) Eyes: ABSENT: visual disturbances, other - Eye pain Ears: ABSENT: hearing changes, other - Ear pain Nose, Mouth, and Throat: ABSENT: headache(s), sore throat Cardiovascular: ABSENT: chest pain, palpitations Respiratory: ABSENT: cough, dyspnea Gastrointestinal: PRESENT: as per HPI, diarrhea. ABSENT: abdominal pain, constipation, nausea, vomiting Genitourinary: ABSENT: dysuria, hematuria Musculoskeletal: PRESENT: as per HPI, other - Severe muscle spasm distal portion of all extremities. ABSENT: back pain, joint swelling Integumentary: ABSENT: pruritus, rash Neurological: ABSENT: confusion, convulsions, focal weakness, memory loss, syncope Psychiatric: ABSENT: anxiety, depression Endocrine: ABSENT: cold intolerance, heat intolerance, polydipsia, polyphagia, polyuria Hematologic/Lymphatic: ABSENT: easy bleeding, easy bruising Allergic/Immunologic: ABSENT: seasonal rhinorrhea Physical Exam Vital Signs: Temp Pulse Resp BP Pulse Ox 98.9 F 23 H 136/86 H 100 06/25/19 00:02 06/25/19 00:02 06/25/19 00:02 06/25/19 00:02 Intake & Output 06/23/19 06/24/19 06/25/19 23:59 23:59 23:59 Intake Total 160 Balance 160 Weight 73 kg General appearance: PRESENT: cooperative, mild distress - Secondary to muscle spasm Head exam: PRESENT: atraumatic, normocephalic Eye exam: ABSENT: conjunctival injection, scleral icterus Ear exam: PRESENT: normal external ear exam. ABSENT: bleeding, drainage Mouth exam: PRESENT: dry mucosa, neck supple Neck exam: ABSENT: thyromegaly, tracheal deviation Respiratory exam: PRESENT: clear to auscultation lynnette, symmetrical, unlabored Cardiovascular exam: PRESENT: RRR. ABSENT: clicks, gallop, rubs Pulses: PRESENT: normal radial pulses, normal dorsalis pedis pul Vascular exam: PRESENT: normal capillary refill. ABSENT: pallor GI/Abdominal exam: PRESENT: hyperactive bowel sounds, soft Rectal exam: PRESENT: deferred Extremities exam: ABSENT: joint swelling, pedal edema Musculoskeletal exam: ABSENT: deformity, dislocation Neurological exam: PRESENT: alert, oriented to person, oriented to place, oriented to time, oriented to situation, CN II-XII grossly intact. ABSENT: motor sensory deficit Psychiatric exam: PRESENT: appropriate affect, normal mood Skin exam: PRESENT: dry, intact, warm. ABSENT: jaundice, rash, urticaria Results Laboratory Results: 06/25/19 00:08 06/25/19 00:08 06/25/19 06/25/19 06/25/19 00:08 00:08 00:08 WBC 17.5 H RBC 4.63 Hgb 14.3 Hct 41.1 MCV 89 MCH 31.0 MCHC 34.9 RDW 12.7 Plt Count 301 Seg Neutrophils % 67.4 Sodium 132.4 L Potassium 3.3 L Chloride 94 L Carbon Dioxide 21 L Anion Gap 17 BUN 32 H Creatinine 2.30 H Est GFR ( Amer) 26 L Glucose 119 H Calcium 5.9 L* Magnesium 0.4 L* Total Bilirubin 0.4 AST 26 Alkaline Phosphatase 115 Total Protein 7.3 Albumin 4.4 Lipase 250.6 Urine Color Urine Appearance Urine pH Ur Specific [place] Urine Protein Urine Glucose (UA) Urine Ketones Urine Blood Urine Nitrite Ur Leukocyte Esterase Urine WBC (Auto) Urine RBC (Auto) 06/25/19 02:12 WBC RBC Hgb Hct MCV MCH MCHC RDW Plt Count Seg Neutrophils % Sodium Potassium Chloride Carbon Dioxide Anion Gap BUN Creatinine Est GFR ( Amer) Glucose Calcium Magnesium Total Bilirubin AST Alkaline Phosphatase Total Protein Albumin Lipase Urine Color YELLOW Urine Appearance SLIGHTLY-CLOUDY Urine pH 6.0 Ur Specific [place] 1.010 Urine Protein NEGATIVE Urine Glucose (UA) NEGATIVE Urine Ketones NEGATIVE Urine Blood NEGATIVE Urine Nitrite NEGATIVE Ur Leukocyte Esterase MODERATE H Urine WBC (Auto) 98 Urine RBC (Auto) 1 06/25/19 00:08 Troponin I < 0.012 Impressions: Chest X-Ray 06/25/19 00:24 IMPRESSION: No acute cardiopulmonary process copyright 2010 [employer]- All Rights Reserved Assessment and Plan - Diagnosis (1) Hypocalcemia Is this a current diagnosis for this admission?: Yes (2) Hypomagnesemia Is this a current diagnosis for this admission?: Yes (3) Tetany Is this a current diagnosis for this admission?: Yes (4) Acute kidney injury (nontraumatic) Is this a current diagnosis for this admission?: Yes (5) Ulcerative colitis Qualifiers: Ulcerative colitis location: unspecified ulcerative colitis location Digestive disease complication type: unspecified complication Qualified Code(s): K51.919 - Ulcerative colitis, unspecified with unspecified complicatio ns Is this a current diagnosis for this admission?: Yes (6) Hypertension Qualifiers: Hypertension type: essential hypertension Qualified Code(s): I10 - Essential (primary) hypertension Is this a current diagnosis for this admission?: Yes - Plan Summary Summary: Patient is admitted to [facility] where she will receive routine supportive and symptomatic cares. Her calcium deficit will be repleted as rapidly as possible. Her magnesium deficit will also be repleted as rapidly as possible. Patient will be observed closely on telemetry during this critical recovery stage. Patient will be hydrated with lactated Ringer solution and her renal function will be monitored very closely. A gastroenterology consultation will be obtain ed as soon as possible. Patient will use morphine sulfate 2 to 4 mg IV every 2 hours as needed for pain control and Ativan 1 mg IV every 4 hours as needed for muscle spasm and for anxiety. Patient was doing very well on Asacol in the past and for some reason her tennis coach took her off and recommended she start taking Remicade injections. She is unable to afford Remicade injections and has been off all ulcerative colitis therapy for several months. Patient will be started back on Asacol with the initial 800 mg p.o. 3 times daily dosing for an acute event. She will be continued on her usual home medications as soon as her medication list has been verified and reconciled. A parathyroid hormone level will be obtained. - Time Time Spent with patient: 25-34 minutes Medications reviewed and adjusted accordingly: Yes Anticipated discharge: Home - Inpatient Certification Based on my medical assessment, after consideration of the patient's comorbidities, presenting symptoms, or acuity I expect that the services needed warrant INPATIENT care.: Yes I certify that my determination is in accordance with my understanding of Medicare's requirements for reasonable and necessary INPATIENT services [42 CFR 412.3e].: Yes Medical Necessity: Need Close Monitoring Due to Risk of Patient Decompensation, Need For IV Fluids, Need For Continuous Telemetry Monitoring, Need for Neurological Checks, Need for Pain Control, Risk of Complication if Not Cared For in Hospital, Risk of Diagnosis Which Will Require Inpatient Eval/Care/Monitoring
[2019-06-25] MEDS: CALCIUM GLUC IN NACL, ISO-OSM 1 GM/50 ML RTUPB IV SCH ×2 (05:51→07:08)
[2019-06-25] MEDS: HEPARIN SOD (PORCINE) 5,000 UNIT/ML 1 ML VIAL SUBCUT SCH ×3 (05:52→22:29)
[2019-06-25] MEDS: DEXTROSE 5%-LACTATED RINGERS 1,000 ML IV PRN (06:11)
[2019-06-25 08:02] LABS: ANION GAP 14 (5-19); BLOOD UREA NITROGEN 28 mg/dL (7-20); CALCIUM 7.2 mg/dL (8.4-10.2); CARBON DIOXIDE 22 mmol/L (22-30); CHLORIDE 98 mmol/L (98-107); GLUCOSE 95 mg/dL (75-110)
[2019-06-25 08:16] LABS: POTASSIUM 2.3 mmol/L (3.6-5.0)
--- NOTE | 2019-06-25 08:25 | EKG REPORT ---
SEVERITY:- ABNORMAL ECG - SINUS RHYTHM CONSIDER POSTERIOR INFARCT REPOL ABNRM SUGGESTS ISCHEMIA, ANT-LAT LEADS BORDERLINE PROLONGED QT INTERVAL : Confirmed by: Angelika Ndiaye 25-Jun-2019 08:24:44
[2019-06-25] MEDS: PANTOPRAZOLE SODIUM 40 MG VIAL IV SCH ×2 (11:25→22:30)
[2019-06-25] MEDS: POTASSIUM CHLORIDE 10 MEQ TABLET.ER PO SCH ×2 (11:25→22:28)
[2019-06-25] MEDS: METOPROLOL TARTRATE 25 MG TABLET PO SCH ×2 (11:26→22:29)
[2019-06-25] MEDS: MESALAMINE 400 MG CAPSULE.DR PO SCH ×3 (11:27→17:35)
[2019-06-25] MEDS ORDERED: MAGNESIUM SULFATE/D5W 1 GM/100 ML RTUPB IV ONE ×2 (11:28→13:04)
[2019-06-25] MEDS: HYDROCODONE/ACETAMINOPHEN 5-325 MG TABLET PO PRN ×2 (14:01→22:32)
[2019-06-25] MEDS ORDERED: POTASSI CL 20 MEQ/50 ML RIDER 20 MEQ/50 ML RTUPB IV ONE (17:38)
[2019-06-25] MEDS ORDERED: HYDROCODONE/ACETAMINOPHEN 5-325 MG TABLET PO SCH (18:00)
[2019-06-25 19:05] LABS: ANION GAP 10 (5-19); BLOOD UREA NITROGEN 22 mg/dL (7-20); CALCIUM 7.5 mg/dL (8.4-10.2); CARBON DIOXIDE 20 mmol/L (22-30); CHLORIDE 105 mmol/L (98-107); GLUCOSE 126 mg/dL (75-110)
[2019-06-25 19:09] LABS: POTASSIUM 2.8 mmol/L (3.6-5.0)
[2019-06-25 19:55] LABS: C DIFFICILE GDH NEGATIVE (NEGATIVE)
[2019-06-25] MEDS: POTASSIUM CHLORIDE 20 MEQ/50 ML RTU IV SCH (22:31)
[2019-06-26] MEDS: POTASSIUM CHLORIDE 20 MEQ/50 ML RTU IV SCH (01:59)
[2019-06-26] MEDS: DEXTROSE 5%-LACTATED RINGERS 1,000 ML IV PRN (06:23)
[2019-06-26] MEDS: HEPARIN SOD (PORCINE) 5,000 UNIT/ML 1 ML VIAL SUBCUT SCH ×3 (06:23→22:35)
[2019-06-26 08:44] LABS: HEMATOCRIT 40.7 % (36.0-47.0); MEAN CORPUSCULAR HEMOGLOBIN 31.1 pg (27.0-33.4); MEAN CORPUSCULAR HGB CONC 34.4 g/dL (32.0-36.0); MEAN CORPUSCULAR VOLUME 90 fl (80-97); PLATELET COUNT 239 10^3/uL (150-450); RED BLOOD COUNT 4.51 10^6/uL (3.72-5.28); RED CELL DISTRIBUTION WIDTH 13.4 % (11.5-14.0); WHITE BLOOD COUNT 10.5 10^3/uL (4.0-10.5)
[2019-06-26 09:06] LABS: ANION GAP 10 (5-19); BLOOD UREA NITROGEN 17 mg/dL (7-20); CALCIUM 7.7 mg/dL (8.4-10.2); CARBON DIOXIDE 19 mmol/L (22-30); CHLORIDE 108 mmol/L (98-107); GLUCOSE 96 mg/dL (75-110)
[2019-06-26 09:17] LABS: POTASSIUM 4.1 mmol/L (3.6-5.0)
[2019-06-26] MEDS: METHYLPREDNISOLONE INJ 40 MG/1 ML SDV IV SCH (09:32)
[2019-06-26] MEDS: PANTOPRAZOLE SODIUM 40 MG VIAL IV SCH ×2 (09:32→22:36)
[2019-06-26] MEDS: POTASSIUM CHLORIDE 10 MEQ TABLET.ER PO SCH ×2 (09:32→22:33)
[2019-06-26] MEDS: METOPROLOL TARTRATE 25 MG TABLET PO SCH ×2 (09:33→22:34)
[2019-06-26] MEDS: MESALAMINE 400 MG CAPSULE.DR PO SCH ×3 (09:33→17:18)
[2019-06-26] MEDS: HYDROCODONE/ACETAMINOPHEN 5-325 MG TABLET PO PRN ×2 (09:46→22:34)
[2019-06-26] MEDS ORDERED: LOPERAMIDE HCL 2 MG CAPSULE PO PRN (12:51)
--- NOTE | 2019-06-26 12:51 | PDOC PROGRESS REPORT ---
Subjective Progress Note for:: 06/26/19 Subjective:: Patient feels much better. She says her diarrhea is improved also. She is complain about the diet being not satisfactory now Reason For Visit: HYPOCALCEMIA,HYPOMAGNESEMIA,SEVERE TETANY Physical Exam Vital Signs: Temp Pulse Resp BP Pulse Ox 98.1 F 70 19 115/53 L 100 06/26/19 07:21 06/26/19 07:21 06/26/19 07:21 06/26/19 07:21 06/26/19 07:21 Intake & Output 06/25/19 06/26/19 06/27/19 06:59 06:59 06:59 Intake Total 2360 2307 1000 Output Total 1 Balance 2360 2306 1000 Weight 72.5 kg 78.4 kg General appearance: PRESENT: no acute distress, well-developed, well-nourished Head exam: PRESENT: atraumatic, normocephalic Eye exam: PRESENT: conjunctiva pink, EOMI, PERRLA. ABSENT: scleral icterus Ear exam: PRESENT: normal external ear exam Mouth exam: PRESENT: moist Neck exam: ABSENT: carotid bruit, JVD, lymphadenopathy, thyromegaly Respiratory exam: PRESENT: clear to auscultation lynnette. ABSENT: rales, rhonchi, wheezes Cardiovascular exam: PRESENT: RRR, +S1, +S2. ABSENT: diastolic murmur, rubs, systolic murmur Pulses: PRESENT: normal dorsalis pedis pul Vascular exam: PRESENT: normal capillary refill GI/Abdominal exam: PRESENT: normal bowel sounds, soft. ABSENT: distended, guarding, mass, organolmegaly, rebound, tenderness Rectal exam: PRESENT: deferred Extremities exam: PRESENT: full ROM. ABSENT: calf tenderness, clubbing, pedal edema Neurological exam: PRESENT: alert, awake, oriented to person, oriented to place, oriented to time, oriented to situation, CN II-XII grossly intact. ABSENT: motor sensory deficit Psychiatric exam: PRESENT: appropriate affect, normal mood. ABSENT: homicidal ideation, suicidal ideation Skin exam: PRESENT: dry, intact, warm. ABSENT: cyanosis, rash Results Laboratory Results: 06/26/19 08:16 06/26/19 08:16 06/25/19 06/26/19 06/26/19 18:40 08:16 08:16 WBC 10.5 RBC 4.51 Hgb 14.0 Hct 40.7 MCV 90 MCH 31.1 MCHC 34.4 RDW 13.4 Plt Count 239 Sodium 134.6 L 136.8 L Potassium 2.8 L* 4.1 D Chloride 105 108 H Carbon Dioxide 20 L 19 L Anion Gap 10 10 BUN 22 H 17 Creatinine 1.76 H 1.31 H Est GFR ( Amer) 35 L 49 L Glucose 126 H 96 Calcium 7.5 L 7.7 L Magnesium 2.1 06/25/19 00:08 Troponin I < 0.012 Impressions: Chest X-Ray 06/25/19 00:24 IMPRESSION: No acute cardiopulmonary process copyright 2010 [employer]- All Rights Reserved Assessment and Plan - Diagnosis (1) Acute kidney injury (nontraumatic) Is this a current diagnosis for this admission?: Yes Plan: Due to dehydration. This has improved greatly. We will continue with of fluids, orally if patient can tolerate (2) Diarrhea Qualifiers: Diarrhea type: unspecified type Qualified Code(s): R19.7 - Diarrhea, unspecified Is this a current diagnosis for this admission?: Yes Plan: This is due to underlying ulcerative colitis. Will start on Imodium as this has helped in the past. Patient has also been started on Asacol and hopefully this will help with her symptoms (3) Hypertension Qualifiers: Hypertension type: essential hypertension Qualified Code(s): I10 - Essenti al (primary) hypertension Is this a current diagnosis for this admission?: Yes Plan: Controlled (4) Hypocalcemia Is this a current diagnosis for this admission?: Yes Plan: Replaced (5) Hypomagnesemia Is this a current diagnosis for this admission?: Yes Plan: Repleted (6) Ulcerative colitis Qualifiers: Ulcerative colitis location: unspecified ulcerative colitis location Digestive disease complication type: unspecified complication Qualified Code(s): K51.919 - Ulcerative colitis, unspecified with unspecified complications Is this a current diagnosis for this admission?: Yes - Plan Summary Summary: Patient is admitted to [facility] where she will receive routine supportive and symptomatic cares. Her calcium deficit will be repleted as rapidly as possible. Her magnesium deficit will also be repleted as rapidly as possible. Patient will be observed closely on telemetry during this critical recovery stage. Patient will be hydrated with lactated Ringer solution and her renal function will be monitored very closely. A gastroenterology consultation will be obtained as soon as possible. Patient will use morphine sulfate 2 to 4 mg IV every 2 hours as needed for pain control and Ativan 1 mg IV every 4 hours as needed for muscle spasm and for anxiety. Patient was doing very well on Asacol in the past and for some reason her carpenter assembler took her off and recommended she start taking Remicade injections. She is unable to afford Remicade injections and has been off all ulcerative colitis therapy for several months. Patient will be started back on Asacol with the initial 800 mg p.o. 3 times daily dosing for an acute event. She will be continued on her usual home medications as soon as her medication list has been verified and reconciled. A parathyroid hormone level will be obtained. 06/25 sent has improved and her electrolytes have also been repleted. She is only received 2 days of treatment including IV steroids. I think she should at least received 3 days management in hospital prior to discharge. We will continue with IV steroids, Asacol and I will place her on Imodium for her diarrhea. She still has evidence of acidosis likely from her GI symptoms - Inpatient Certification Based on my medical assessment, after consideration of the patient's comorbidities, presenting symptoms, or acuity I expect that the services needed warrant INPATIENT care.: Yes
[2019-06-27] MEDS: HEPARIN SOD (PORCINE) 5,000 UNIT/ML 1 ML VIAL SUBCUT SCH (06:40)
[2019-06-27 08:40] LABS: ANION GAP 11 (5-19); BLOOD UREA NITROGEN 18 mg/dL (7-20); CARBON DIOXIDE 20 mmol/L (22-30); CHLORIDE 106 mmol/L (98-107); GLUCOSE 137 mg/dL (75-110); POTASSIUM 3.4 mmol/L (3.6-5.0)
[2019-06-27] MEDS: METHYLPREDNISOLONE INJ 40 MG/1 ML SDV IV SCH (09:20)
[2019-06-27] MEDS: POTASSIUM CHLORIDE 10 MEQ TABLET.ER PO SCH (09:20)
[2019-06-27] MEDS: PANTOPRAZOLE SODIUM 40 MG VIAL IV SCH (09:20)
[2019-06-27] MEDS: MESALAMINE 400 MG CAPSULE.DR PO SCH (09:20)
[2019-06-27] MEDS: METOPROLOL TARTRATE 25 MG TABLET PO SCH (09:26)
--- NOTE | 2019-06-27 11:31 | PDOC DISCHARGE SUMMARY ---
Impression - Admit/DC Date/PCP Admission Date/Primary Care Provider: 06/25/19 03:03 BALDEMAR SNEED MD Discharge Date: 06/27/19 - Discharge Diagnosis (1) Acute kidney injury (nontraumatic) Is this a current diagnosis for this admission?: Yes (2) Diarrhea Is this a current diagnosis for this admission?: Yes (3) Hypertension Is this a current diagnosis for this admission?: Yes (4) Hypocalcemia Is this a current diagnosis for this admission?: Yes (5) Hypomagnesemia Is this a current diagnosis for this admission?: Yes (6) Ulcerative colitis Is this a current diagnosis for this admission?: Yes - Assessment Summary: Patient is admitted to [facility] where she will receive routine supportive and symptomatic cares. Her calcium deficit will be repleted as rapidly as possible. Her magnesium deficit will also be repleted as rapidly as possible. Patient will be observed closely on telemetry during this critical recovery stage. Patient will be hydrated with lactated Ringer solution and her renal function will be monitored very closely. A gastroenterology consultation will be obtained as soon as possible. Patient will use morphine sulfate 2 to 4 mg IV every 2 hours as needed for pain control and Ativan 1 mg IV every 4 hours as needed for muscle spasm and for anxiety. Patient was doing very well on Asacol in the past and for some reason her business operations director took her off and recommended she start taking Remicade injections. She is unable to afford Remicade injections and has been off all ulcerative colitis therapy for several months. Patient will be started back on Asacol with the initial 800 mg p.o. 3 times daily dosing for an acute event. She will be continued on her usual home medications as soon as her medication list has been verified and reconciled. A parathyroid hormone level will be obtained. 4/ sent has improved and her electrolytes have also been repleted. She is only received 2 days of treatment including IV steroids. I think she should at least received 3 days management in hospital prior to discharge. We will continue with IV steroids, Asacol and I will place her on Imodium for her diarrhea. She still has evidence of acidosis likely from her GI symptoms - Additional Information Resuscitation Status: Full Code Discharge Diet: As Tolerated Discharge Activity: Activity As Tolerated Referrals: BALDEMAR SNEED MD [Primary Care Provider] - 07/01/19 (Follow up [facility], [facility]) Prescriptions: Mesalamine [Asacol Sr 400 mg Capsule] 800 mg PO TID #180 capsule. Prednisone [Deltasone 20 mg Tablet] 40 mg PO DAILY #10 tablet Potassium Chloride [Klor-Con 10 Meq Tablet ER] 20 meq PO Q12 #10 tablet.er Home Medications: Metoprolol Tartrate 25 mg PO Q12 10/09/16 Hydrocodone/Acetaminophen [[place] 5-325 mg Tablet] 1 tab PO Q8HP PRN 06/25/19 Rosuvastatin Calcium 40 mg PO QHS 06/25/19 Loperamide HCl [Imodium 2 mg Capsule] 2 mg PO Q4HP PRN capsule 06/27/19 Mesalamine [Asacol Sr 400 mg Capsule] 800 mg PO TID #180 capsule. 06/27/19 Potassium Chloride [Klor-Con 10 Meq Tablet ER] 20 meq PO Q12 #10 tablet.er 06/27/19 Prednisone [Deltasone 20 mg Tablet] 40 mg PO DAILY #10 tablet 06/27/19 History of Present Illiness History of Present Illness: KAILA GLORIA is a 64 year old female Patient presents emergency room with severe muscle cramping as well as abdominal pain severe spasms associated with frequent watery diarrhea. She was found to have several electrolyte abnormalities. She was thus admitted for further management. See admitting history and physical for full details. Hospital Course Hospital Course: She was found to have profound hypocalcemia, hypomagnesemia with calcium of 5.9 and magnesium of 0.4. Patient was also in acute kidney injury with creatinine of 2.3. She gives a history of ulcerative colitis however she had been on no medication for the last 2 years or so. She had been managing her diarrhea with Imodium. Patient was started on burst steroids which she received for 3 days. She was also started on Asacol. She had had problems been able to afford Remicade that she had been prescribed so at this point it is felt that she will be kept on Asacol but needs to follow-up with her business operations director as soon as possible so that her medications can be reevaluated and adjusted. Her electrolytes have corrected while in hospital. Her diarrhea has improved although obviously still present. Tetany has resolved and her calcium today is 9. She will need close monitoring of her electrolytes as she still has ongoing diarrhea Physical Exam Vital Signs: Temp Pulse Resp BP Pulse Ox 98.6 F 62 18 94/50 L 96 06/27/19 07:38 06/27/19 07:38 06/27/19 07:38 06/27/19 07:38 06/27/19 07:38 Intake & Output 06/26/19 06/27/19 06/28/19 06:59 06:59 06:59 Intake Total 2307 1358 Output Total 1 Balance 2306 1358 Weight 78.4 kg 76 kg General appearance: PRESENT: no acute distress, well-developed, well-nourished Head exam: PRESENT: atraumatic, normocephalic Eye exam: PRESENT: conjunctiva pink, EOMI, PERRLA. ABSENT: scleral icterus Ear exam: PRESENT: normal external ear exam Mouth exam: PRESENT: tongue midline Neck exam: ABSENT: carotid bruit, JVD, lymphadenopathy, thyromegaly Respiratory exam: PRESENT: clear to auscultation lynnette. ABSENT: rales, rhonchi, wheezes Cardiovascular exam: PRESENT: RRR, +S1, +S2. ABSENT: diastolic murmur, rubs, systolic murmur Pulses: PRESENT: normal dorsalis pedis pul Vascular exam: PRESENT: normal capillary refill GI/Abdominal exam: PRESENT: normal bowel sounds, soft. ABSENT: distended, guarding, mass, organolmegaly, rebound, tenderness Rectal exam: PRESENT: deferred Extremities exam: PRESENT: full ROM. ABSENT: calf tenderness, clubbing, pedal edema Neurological exam: PRESENT: alert, awake, oriented to person, oriented to place, oriented to time, oriented to situation, CN II-XII grossly intact. ABSENT: motor sensory deficit Psychiatric exam: PRESENT: appropriate affect, normal mood. ABSENT: homicidal ideation, suicidal ideation Skin exam: PRESENT: dry, intact, warm. ABSENT: cyanosis, rash Results Laboratory Results: WBC 10.5 10^3/uL (4.0-10.5) 06/26/19 08:16 RBC 4.51 10^6/uL (3.72-5.28) 06/26/19 08:16 Hgb 14.0 g/dL (12.0-15.5) 06/26/19 08:16 Hct 40.7 % (36.0-47.0) 06/26/19 08:16 MCV 90 fl (80-97) 06/26/19 08:16 MCH 31.1 pg (27.0-33.4) 06/26/19 08:16 MCHC 34.4 g/dL (32.0-36.0) 06/26/19 08:16 RDW 13.4 % (11.5-14.0) 06/26/19 08:16 Plt Count 239 10^3/uL (150-450) 06/26/19 08:16 Lymph % (Auto) 22.0 % (13-45) 06/25/19 00:08 [place] % (Auto) 7.9 % (3-13) 06/25/19 00:08 Eos % (Auto) 1.4 % (0-6) 06/25/19 00:08 Baso % (Auto) 1.3 % (0-2) 06/25/19 00:08 Absolute Neuts (auto) 11.8 10^3/uL (1.7-8.2) H 06/25/19 00:08 Absolute Lymphs (auto) 3.8 10^3/uL (0.5-4.7) 06/25/19 00:08 Absolute Monos (auto) 1.4 10^3/uL (0.1-1.4) 06/25/19 00:08 Absolute Eos (auto) 0.2 10^3/uL (0.0-0.6) 06/25/19 00:08 Absolute Basos (auto) 0.2 10^3/uL (0.0-0.2) 06/25/19 00:08 Seg Neutrophils % 67.4 % (42-78) 06/25/19 00:08 Sodium 137.1 mmol/L (137-145) 06/27/19 07:58 Potassium 3.4 mmol/L (3.6-5.0) L 06/27/19 07:58 Chloride 106 mmol/L (98-107) 06/27/19 07:58 Carbon Dioxide 20 mmol/L (22-30) L 06/27/19 07:58 Anion Gap 11 (5-19) 06/27/19 07:58 BUN 18 mg/dL (7-20) 06/27/19 07:58 Creatinine 1.38 mg/dL (0.52-1.25) H 06/27/19 07:58 Est GFR ( Amer) 46 (>60) L 06/27/19 07:58 Est GFR (Non-Af Amer) Cancelled 06/25/19 06:00 Est GFR (MDRD) Non-Af 38 (>60) L 06/27/19 07:58 Glucose 137 mg/dL (75-110) H 06/27/19 07:58 Calcium 9.0 mg/dL (8.4-10.2) 06/27/19 07:58 Ionized Calcium Kofi 0.89 mmol/L (1.14-1.30) L 06/25/19 02:39 Magnesium 1.6 mg/dL (1.6-2.3) 06/27/19 07:58 Total Bilirubin 0.4 mg/dL (0.2-1.3) 06/25/19 00:08 Direct Bilirubin 0.3 mg/dL (0.0-0.4) 06/25/19 00:08 Neonat Total Bilirubin Not Reportable 06/25/19 00:08 Neonat Direct Bilirubin Not Reportable 06/25/19 00:08 Neonat Indirect Bili Not Reportable 06/25/19 00:08 AST 26 U/L (14-36) 06/25/19 00:08 ALT 15 U/L (<35) 06/25/19 00:08 Alkaline Phosphatase 115 U/L (38-126) 06/25/19 00:08 Troponin I < 0.012 ng/mL 06/25/19 00:08 Total Protein 7.3 g/dL (6.3-8.2) 06/25/19 00:08 Albumin 4.4 g/dL (3.5-5.0) 06/25/19 00:08 Lipase 250.6 U/L (23-300) 06/25/19 00:08 EGFR Cancelled 06/25/19 06:00 PTH Intact 275.0 pg/mL (10.0-65.0) H 06/25/19 07:30 Urine Color YELLOW 06/25/19 02:12 Urine Appearance SLIGHTLY-CLOUDY 06/25/19 02:12 Urine pH 6.0 (5.0-9.0) 06/25/19 02:12 Ur Specific [place] 1.010 06/25/19 02:12 Urine Protein NEGATIVE mg/dL (NEGATIVE) 06/25/19 02:12 Urine Glucose (UA) NEGATIVE mg/dL (NEGATIVE) 06/25/19 02:12 Urine Ketones NEGATIVE mg/dL (NEGATIVE) 06/25/19 02:12 Urine Blood NEGATIVE (NEGATIVE) 06/25/19 02:12 Urine Nitrite NEGATIVE (NEGATIVE) 06/25/19 02:12 Urine Bilirubin NEGATIVE (NEGATIVE) 06/25/19 02:12 Urine Urobilinogen NEGATIVE mg/dL (<2.0) 06/25/19 02:12 Ur Leukocyte Esterase MODERATE (NEGATIVE) H 06/25/19 02:12 Urine WBC (Auto) 98 /HPF 06/25/19 02:12 Urine RBC (Auto) 1 /HPF 06/25/19 02:12 U Hyaline Cast (Auto) 1 /LPF 06/25/19 02:12 Urine Bacteria (Auto) 1+ /HPF 06/25/19 02:12 Squamous Epi Cells Auto 3 /HPF 06/25/19 02:12 Urine Mucus (Auto) RARE /LPF 06/25/19 02:12 Urine Ascorbic Acid 40 (NEGATIVE) H 06/25/19 02:12 Stl C. Difficile GDH Ag NEGATIVE (NEGATIVE) 06/25/19 19:00 Stl C.difficile Tox A&B NEGATIVE (NEGATIVE) 06/25/19 19:00 06/25/19 00:08 Troponin I < 0.012 Impressions: Chest X-Ray 06/25/19 00:24 IMPRESSION: No acute cardiopulmonary process copyright 2011 [employer]- All Rights Reserved Plan Health Concerns: Close follow-up for electrolytes to be monitored and replaced as necessary. Patient also needs to see business operations director for follow-up as soon as possible so her medications can be reevaluated and adjusted Stroke Is this a Stroke Patient?: No Acute Heart Failure - Is this a Heart Failure Patient?: No
--- NOTE | 2019-06-27 11:34 | Progress Note ---
Provider Note Provider Note: Return to work This patient was admitted to the hospital for inpatient management from June 24 through June 27, 2019. She can resume her regular duties and return to work on June 30, 2019. Thank You Dr. Tirado
[2019-06-27 11:38] VITALS: BP 110/75
== END 2019-06-27 12:40 | disposition home or self-care (01) | DRG 683 ==
LOC: ER 23:53 → EH 06-25 03:03 → 3S 06-25 04:23
PROVIDERS: ADMIT Emergency Medicine; ATTEND Internal Medicine
DX: N17.9 Acute kidney failure, unspecified (principal); R29.0 Tetany; K51.90 Ulcerative colitis, unspecified, without complications; E83.42 Hypomagnesemia; E83.51 Hypocalcemia; E86.0 Dehydration; E87.6 Hypokalemia; I10 Essential (primary) hypertension; M19.90 Unspecified osteoarthritis, unspecified site; E87.8 Other disorders of electrolyte and fluid balance, not elsewhere classified; R94.31 Abnormal electrocardiogram [ECG] [EKG]; Z88.1 Allergy status to other antibiotic agents; Z88.2 Allergy status to sulfonamides; Z88.0 Allergy status to penicillin; Z88.8 Allergy status to other drugs, medicaments and biological substances; Z91.19 Patient's noncompliance with other medical treatment and regimen; Z59.9 Problem related to housing and economic circumstances, unspecified
CPT/HCPCS: 36415; 71045; 80048; 80053; 81001; 82330; 83690; 83735; 83970; 84484; 85025; 85027; 87045; 87086; 87088; 87186; 87205; 87324; 87449; 93005; 93010; 96365; 96367; 96375; 99291; J0610; C9113; J1644; J2060; J2920; J3475; J3480; J3490; J7030; J7120; J7121

== ENCOUNTER 2019-07-02 13:55 | Emergency (ER) | payer BC ==
--- NOTE | 2019-07-02 14:34 | ER Document Report ---
ED General - General Chief Complaint: Abnormal Lab Results Stated Complaint: ABNORMAL LABS Time Seen by Provider: 07/02/19 14:17 Primary Care Provider: BALDEMAR SNEED MD [Primary Care Provider] - Follow up as needed Mode of Arrival: Ambulatory Information source: Patient Notes: 64-year-old woman presents to the emergency department history of seen for 10/21/2019 for lab work through her primary care doctor's office. Apparently the results revealed a magnesium of 0.8. She was sent to the emergency department by her primary to get infusion of magnesium. Patient states that she is asymptomatic having no weakness or tingling or other weakness or fatigue sym ptoms. TRAVEL OUTSIDE OF THE [place] IN LAST 30 DAYS: No - Related Data Allergies/Adverse Reactions: ciprofloxacin [Ciprofloxacin] Allergy (Intermediate, Verified 07/02/19 14:08) Flushing erythromycin lactobionate [From Erythrocin] Allergy (Intermediate, Verified 07/02/19 14:08) Flushing nitrofurantoin [From Macrodantin] Allergy (Intermediate, Verified 07/02/19 14:08) Difficulty breathing Penicillins Allergy (Intermediate, Verified 07/02/19 14:08) Flushing Iodinated Contrast Media Allergy (Verified 07/02/19 14:13) Sulfa (Sulfonamide Antibiotics) Allergy (Verified 07/02/19 14:08) Home Medications: crestor, metoprolol Past Medical History - Social History Smoking Status: Current Every Day Smoker Chew tobacco use (# tins/day): No Frequency of alcohol use: None Drug Abuse: None Family History: Reviewed & Not Pertinent Patient has suicidal ideation: No Patient has homicidal ideation: No - Past Medical History Cardiac Medical History: Reports: Hx Hypercholesterolemia, Hx Hypertension Denies: Hx Atrial Fibrillation, Hx Coronary Artery Disease, Hx Heart Attack Pulmonary Medical History: Denies: Hx Asthma, Hx Bronchitis, Hx COPD, Hx Pneumonia Neurological Medical History: Denies: Hx Cerebrovascular Accident, Hx Seizures Endocrine Medical History: Denies: Hx Diabetes Mellitus Type 1, Hx Diabetes Mellitus Type 2, Hx Hyperthyroidism, Hx Hypothyroidism Renal/ Medical History: Reports: Hx Kidney Stones. Denies: Hx Peritoneal Dial ysis GI Medical History: Reports: Hx Ulcerative Colitis. Denies: Hx Cirrhosis, Hx Crohn's Disease, Hx Hepatitis Musculoskeletal Medical History: Reports Hx Arthritis - Ostearthritis- everywhere, Denies Hx Gout Skin Medical History: Denies Hx Eczema, Denies Hx Psoriasis Infectious Medical History: Denies: Hx Hepatitis Past Surgical History: Reports: Hx Hysterectomy, Hx Tonsillectomy, Other - Colonoscopy - Immunizations Hx Diphtheria, Pertussis, Tetanus Vaccination: Yes Review of Systems - Review of Systems Notes: Constitutional: Negative for fever. HENT: Negative for sore throat. Eyes: Negative for visual changes. Cardiovascular: Negative for chest pain. Respiratory: Negative for shortness of breath. Gastrointestinal: Negative for abdominal pain, vomiting or diarrhea. Genitourinary: Negative for dysuria. Musculoskeletal: Negative for back pain. Skin: Negative for rash. Neurological: Negative for headaches, weakness or numbness. 10 point ROS negative except as marked above and in HPI. Physical Exam - Vital signs Vitals: Temp Pulse Resp BP Pulse Ox 98.1 F 73 16 119/69 100 07/02/19 14:13 07/02/19 14:13 07/02/19 14:13 07/02/19 14:13 07/02/19 14:13 - Notes Notes: PHYSICAL EXAMINATION: Physical Exam: General: Well-nourished well-developed 64-year-old female in no acute distress HEENT: NC/AT, pupils equal round and reactive to light, MM moist,nares clear, oropharynx clear, airway patent Neck: supple, no adenopathy, no masses. Good range of motion Lungs: clear, no wheezing, no rales no rhonchi CVS: Regular rate and rhythm no murmur gallop or rub Abdomen: Soft, active, nontender, no masses, no hepatosplenomegaly Ext: No edema, clubbing or cyanosis. Neuro: Alert and responsive, moving all 4 extremities on command, cranial nerves intact, no focal findings Skin: Intact no open lesions, no rash PSYCH: Normal mood, normal affect. Course - Re-evaluation Re-evalutation: 07/02/19 14:40 Patient presents with outpatient lab result magnesium was 0.8. Apparently sent to the emergency department for infusion of magnesium. Discussion with the primary provider by the ER physician notes slow mag orally could be given however, the primary physician insists that infusion is his management source. 07/02/19 18:36 Patient received 2 g of IV mag, she is feeling fine, I have given her prescription for mag oxide 400 mg twice daily and have encouraged her to follow- up with her primary care doctor in 1 week for recheck. Patient is fine with that plan. She is being discharged home. - Vital Signs Vital signs: Temp Pulse Resp BP Pulse Ox 98.1 F 73 18 115/65 96 07/02/19 14:13 07/02/19 14:13 07/02/19 19:01 07/02/19 19:01 07/02/19 19:01 - Laboratory Result Diagrams: 07/02/19 14:53 07/02/19 15:00 Laboratory results interpreted by me: 07/02/19 07/02/19 14:53 15:00 WBC 22.5 H BUN 35 H Est GFR ( Amer) 52 L Est GFR (MDRD) Non-Af 43 L Magnesium 1.0 L* ALT 40 H Discharge - Discharge Clinical Impression: Hypomagnesemia Condition: Good Disposition: HOME, SELF-CARE Additional Instructions: You were seen and treated today for low magnesium level. Please take the magnesium supplement as prescribed and follow-up with your physician next week for recheck of your magnesium level. If you develop new problems or concerns you may return to the emergency department for reevaluation. HOME CARE INSTRUCTIONS & INFORMATION: Thank you for choosing us for your medical needs. We hope you're satisfied with the care you received. After you leave, you must properly care for your problem and, at the same time, observe its progress. Any condition can change. Some illnesses can change rapidly over hours or days. If your condition worsens, return to the Emergency Department or see your physician promptly. ABOUT YOUR X-RAYS AND EKG'S: If you had an EKG or X-rays taken, they have been read by the Emergency Physician. The X-rays and EKG's will also be read by a Radiologist or Manufacturing Assistant within 24 hours. If discrepancies are noted, you will be notified by telephone. Please be certain the ED has a correct telephone number & address where you can be reached. Also, realize that some fractures or abnormalities do not show up on initial X-rays. If your symptoms continue, see your physician. ABOUT YOUR LABORATORY TEST: If you had laboratory tests, the results have been reviewed by the Emergency Physician. Some test results (for example cultures) may not be available for several days. You will be contacted if any test result shows you need additional treatment. Please be certain the ED has a correct telephone number and address where you can be reached. ABOUT YOUR MEDICATIONS: You will receive instructions on how to take your medicine on the prescription label you receive. Additional information may be provided by the Pharmacy. If you have questions afterwards, call the ED for clarification or further instructions. Some prescribed medications may cause drowsiness. Do not perform tasks such as driving a car or operating machinery without consulting your Pharmacist. If you feel you need a refill of pain medication, your condition will need re-evaluation. Please do not call for a refill of any medication. ABOUT YOUR SIGNATURE: Signature of this document acknowledges to followin. Understanding that you received emergency treatment and that you may be released before al medical problems are known or treated. Please be certain the ED has a correct phone number & address where you can be reached. 2. Acknowledgement that you will arrange for follow-up care as recommended. 3. Authorization for the Emergency Physician to provide information to your follow-up Physician in order to maximize your care. AT ANY TIME, IF YOUR SYMPTOMS CHANGE SIGNIFICANTLY OR WORSEN OR YOU DEVELOP NEW SYMPTOMS, RETURN TO THE EMERGENCY DEPARTMENT IMMEDIATELY FOR RE-EVALUATION. OUR GOAL IS TO PROVIDE EXCELLENT MEDICAL CARE! WE HOPE THAT WE HAVE MET YOUR EXPECTATIONS DURING YOUR EMERGENCY DEPARTMENT VISIT AND THAT YOU FEEL YOU HAVE RECEIVED EXCELLENT CARE! Prescriptions: Magnesium Oxide 400 mg PO TID #60 tablet Referrals: BALDEMAR SNEED MD [Primary Care Provider] - Follow up as needed
[2019-07-02] MEDS: MAGNESIUM SULFATE/D5W 1 GM/100 ML RTUPB IV SCH ×2 (15:42→16:37)
[2019-07-02 15:54] LABS: HEMATOCRIT 37.3 % (36.0-47.0); HEMOGLOBIN 12.6 g/dL (12.0-15.5); MEAN CORPUSCULAR HGB CONC 33.7 g/dL (32.0-36.0); MEAN CORPUSCULAR VOLUME 92 fl (80-97); PLATELET COUNT 267 10^3/uL (150-450); RED BLOOD COUNT 4.06 10^6/uL (3.72-5.28); WHITE BLOOD COUNT 22.5 10^3/uL (4.0-10.5)
[2019-07-02 16:08] LABS: ALBUMIN 4.2 g/dL (3.5-5.0); ALKALINE PHOSPHATASE 82 U/L (38-126); ANION GAP 8 (5-19); ASPARTATE AMINO TRANSFERASE 24 U/L (14-36); BILIRUBIN,TOTAL 0.3 mg/dL (0.2-1.3); BLOOD UREA NITROGEN 35 mg/dL (7-20); CALCIUM 9.4 mg/dL (8.4-10.2); CARBON DIOXIDE 22 mmol/L (22-30); CHLORIDE 107 mmol/L (98-107); GLUCOSE 97 mg/dL (75-110); POTASSIUM 4.9 mmol/L (3.6-5.0); TOTAL PROTEIN 6.8 g/dL (6.3-8.2)
[2019-07-02 19:17] VITALS: BP 115/65
== END 2019-07-02 19:17 | disposition home or self-care (01) ==
LOC: ER 13:55
DX: E83.42 Hypomagnesemia (principal); F17.200 Nicotine dependence, unspecified, uncomplicated; E78.00 Pure hypercholesterolemia, unspecified; I10 Essential (primary) hypertension; Z90.710 Acquired absence of both cervix and uterus; Z87.442 Personal history of urinary calculi; Z88.2 Allergy status to sulfonamides; Z88.0 Allergy status to penicillin; Z88.3 Allergy status to other anti-infective agents
CPT/HCPCS: 99283; 96365; 96366; 36415; 83735; 85027; 80053; J3475

== ENCOUNTER → 2019-07-07 | Outpatient (CLI) | payer BC | LOC: OD 09:57 | PROVIDERS: ATTEND Specialist | DX: I34.1 Nonrheumatic mitral (valve) prolapse (principal); I47.1 Supraventricular tachycardia; I10 Essential (primary) hypertension; E87.6 Hypokalemia; E78.49 Other hyperlipidemia; Z79.899 Other long term (current) drug therapy | CPT/HCPCS: 36415; 83735 ==

== ENCOUNTER 2019-07-10 15:56 | Emergency (ER) | payer BC ==
--- NOTE | 2019-07-10 16:49 | ER Document Report ---
ED General - General TRAVEL OUTSIDE OF THE [place] IN LAST 30 DAYS: No <ELLE GONSALEZ - Last Filed: 07/10/19 19:47> <DINORAH ALEMAN - Last Filed: 07/11/19 04:17> - General Chief Complaint: Abnormal Lab Results Stated Complaint: ABNORMAL LABS Time Seen by Provider: 07/10/19 16:32 Primary Care Provider: BALDEMAR SNEED MD [Primary Care Provider] - Follow up tomorrow Notes: CHIEF COMPLAINT: Low magnesium level HPI: 64-year-old female with history of colitis presenting to the emergency department complaining of low magnesium level and facial twitching. Patient states she has been in the emergency department several times recently for electrolyte disturbances. Patient has a history of colitis which is currently being treated by gastroenterology, states she has had diarrhea up until today. She has not had any diarrhea today at all. No abdominal pain fever nausea vomiting chest pain shortness of breath or cough. Patient states she did have lab work drawn 2 days ago and was called today and told that her magnesium level was 0.8. Patient states she had this happen 2 weeks ago and had to come in for IV replacement. Patient complains of twitching of the muscles near the left eye. Denies other complaints at this time. ROS: See HPI - all other systems were reviewed and are otherwise negative Constitutional: no fever Eyes: no drainage, no blurred vision ENT: no runny nose, no sore throat Cardiovascular: no chest pain Resp: no SOB, no cough GI: no vomiting, no diarrhea today, no abdominal pain : no dysuria Integumentary: no rash Allergy: no hives Musculoskeletal: no extremity pain or swelling, positive muscle twitching in the face Neurological: no numbness/tingling, no weakness MEDICATIONS: I agree with the patient medications as charted by the RN. ALLERGIES: I agree with the allergies as charted by the RN. PAST MEDICAL HISTORY/PAST SURGICAL HISTORY: Reviewed and agree as charted by RN. SOCIAL HISTORY: Reviewed and agree as charted by RN. FAMILY HISTORY: No significant familial comorbid conditions directly related to patient complaint EXAM: Reviewed vital signs as charted by RN. CONSTITUTIONAL: Alert and oriented and responds appropriately to questions. Well-appearing; well-nourished HEAD: Normocephalic; atraumatic EYES: PERRL; Conjunctivae clear, sclerae non-icteric ENT: normal nose; no rhinorrhea; moist mucous membranes; pharynx without lesions noted NECK: Supple without meningismus; non-tender; no cervical lymphadenopathy, no masses CARD: RRR; no murmurs, no clicks, no rubs, no gallops; symmetric distal pulses RESP: Normal chest excursion without splinting or tachypnea; breath sounds clear and equal bilaterally; no wheezes, no rhonchi, no rales, pulse oximetry 98% on room air not hypoxic ABD/GI: Normal bowel sounds; non-distended; soft, non-tender, no rebound, no guarding; no palpable organomegaly or masses. BACK: The back appears normal and is non-tender to palpation, there is no CVA t enderness EXT: Normal ROM in all joints; non-tender to palpation; no cyanosis, no effusions, no edema. There is slight muscle twitching in the left inferior periorbital region SKIN: Normal color for age and race; warm; dry; good turgor; no acute lesions noted NEURO: Moves all extremities equally; Motor and sensory function intact PSYCH: The patient's mood and manner are appropriate. Grooming and personal hygiene are appropriate. MDM: 64-year-old female presenting for possible hypomagnesemia. Has been seen recently for same and has similar symptoms per the patient. Lab results from 2 days ago was 0.8 will recheck labs, if still low plan to give IV replacement. She has been increased recently from 3 pills daily to 4 pills daily. States she has had no diarrhea today which had been an ongoing problem with her colitis and she believes that it will improve now that she is not losing the magnesium this way (ELLE GONSALEZ) - Related Data Allergies/Adverse Reactions: ciprofloxacin [Ciprofloxacin] Allergy (Intermediate, Verified 07/02/19 14:08) Flushing erythromycin lactobionate [From Erythrocin] Allergy (Intermediate, Verified 07/02/19 14:08) Flushing nitrofurantoin [From Macrodantin] Allergy (Intermediate, Verified 07/02/19 14:08) Difficulty breathing Penicillins Allergy (Intermediate, Verified 07/02/19 14:08) Flushing Iodinated Contrast Media Allergy (Verified 07/02/19 14:13) Sulfa (Sulfonamide Antibiotics) Allergy (Verified 07/02/19 14:08) Past Medical History - Social History Smoking Status: Current Every Day Smoker Frequency of alcohol use: None Drug Abuse: None Family History: Reviewed & Not Pertinent Patient has suicidal ideation: No Patient has homicidal ideation: No - Past Medical History Cardiac Medical History: Reports: Hx Hypercholesterolemia, Hx Hypertension Denies: Hx Atrial Fibrillation, Hx Coronary Artery Disease, Hx Heart Attack Pulmonary Medical History: Denies: Hx Asthma, Hx Bronchitis, Hx COPD, Hx Pneumonia Neurological Medical History: Denies: Hx Cerebrovascular Accident, Hx Seizures Endocrine Medical History: Denies: Hx Diabetes Mellitus Type 1, Hx Diabetes Mellitus Type 2, Hx Hyperthyroidism, Hx Hypothyroidism Renal/ Medical History: Reports: Hx Kidney Stones. Denies: Hx Peritoneal Dialysis GI Medical History: Reports: Hx Ulcerative Colitis. Denies: Hx Cirrhosis, Hx Crohn's Disease, Hx Hepatitis Musculoskeletal Medical History: Reports Hx Arthritis - Ostearthritis-every where, Denies Hx Gout Skin Medical History: Denies Hx Eczema, Denies Hx Psoriasis Infectious Medical History: Denies: Hx Hepatitis Past Surgical History: Reports: Hx Hysterectomy, Hx Tonsillectomy, Other - Colonoscopy - Immunizations Hx Diphtheria, Pertussis, Tetanus Vaccination: Yes <ELLE GONSALEZ - Last Filed: 07/10/19 19:47> Physical Exam - Vital signs Vitals: Temp Pulse Resp BP Pulse Ox 98.6 F 107 H 16 121/65 97 07/10/19 16:00 07/10/19 16:00 07/10/19 16:00 07/10/19 16:00 07/10/19 16:00 Course - Laboratory Result Diagrams: 07/10/19 16:30 07/10/19 16:30 <ELLE GONSALEZ - Last Filed: 07/10/19 19:47> - Laboratory Result Diagrams: 07/10/19 16:30 07/10/19 16:30 <DINORAH ALEMAN - Last Filed: 07/11/19 04:17> - Re-evaluation Re-evalutation: 07/10/19 19:10 The muscle twitching around the left eye has resolved. Patient has no complaints at this time. She has received 3 g of magnesium at this point. Awaiting the redraw, if patient is still low we will give a second run of 3 g but patient will likely be able to be discharged at that point as she has no complaints of diarrhea and has increased the oral magnesium dosing to 1200 mg daily. She does have close follow-up already arranged. Patient does have renal insufficiency she is aware of this. Patient also appears to have a UTI states that she was noticed to have possibly E. coli in the urine at the beginning of the month but it was never treated, her PCP was waiting on a culture, I could n ot find a culture so I will add a culture today, she is otherwise asymptomatic for UTI (ELLE GONSALEZ) On my evaluation at bedside patient has no complaints. She is talkative and well-appearing. I am familiar with this patient because of her recent admission to the hospital for similar situation but this was worse last time. Patient has no current diarrhea making symptoms worse. Initially we mimi repeat magnesium, this was noted to be significantly changed from prior, this was found to have been taken from the IV and therefore was repeated. Repeat was still surp risingly changed at 2.4. I discussed with patient at length. I discovered that patient had actually taken multiple doses of oral magnesium at home before coming to the emergency department, I think the significant change was from a combination of her IV medications and her oral medications eventually raising her level as well. Patient has no current symptoms. Urinalysis also indicates possible infection, previous culture noted to have E. coli, I discussed this with patient, she states that she is allergic to multiple antibiotics but she can take Keflex without any difficulty. Discussed pros and cons, after discussion decision was made to provide her with 3-day course, culture the urine, and have her follow-up for close recheck of her electrolytes. Patient already has excellent follow-up, discussed return precautions. Patient stated understanding and agreement with plan. (DINORAH ALEMAN) - Vital Signs Vital signs: Temp Pulse Resp BP Pulse Ox 98.2 F 107 H 20 106/67 98 07/10/19 21:00 07/10/19 16:00 07/10/19 22:01 07/10/19 22:01 07/10/19 22:01 - Laboratory Laboratory results interpreted by me: 07/10/19 07/10/19 07/10/19 16:30 16:30 17:01 Lymph % (Auto) 5.6 L [place] % (Auto) 1.3 L Seg Neutrophils % 92.7 H Creatinine 1.37 H Est GFR ( Amer) 47 L Est GFR (MDRD) Non-Af 39 L Glucose 133 H Calcium 7.3 L Magnesium 0.7 L* Urine Protein 30 H Urine Ketones TRACE H Ur Leukocyte Esterase MODERATE H Urine Ascorbic Acid 40 H 07/10/19 07/10/19 19:02 20:36 Lymph % (Auto) [place] % (Auto) Seg Neutrophils % Creatinine Est GFR ( Amer) Est GFR (MDRD) Non-Af Glucose Calcium Magnesium 3.3 H D 2.4 H Urine Protein Urine Ketones Ur Leukocyte Esterase Urine Ascorbic Acid Discharge <YVETTEJESSICAELLE SMITH Neetu - Last Filed: 07/10/19 19:47> <DINORAH ALEMAN - Last Filed: 07/11/19 04:17> - Discharge Clinical Impression: Hypomagnesemia, Renal insufficiency Condition: Stable Disposition: HOME, SELF-CARE Additional Instructions: Your new magnesium level is 2.4. Please take your magnesium as prescribed. Follow closely with your primary provider for recheck and additional management. Your urine does indicate infection, we have a culture pending, I recommend the Keflex as prescribed, I also recommend [id number] probiotic while taking to avoid diarrhea. Return if you worsen including muscle spasms, palpitations, passing out, fever, vomiting, or any other concerning or worsening symptoms. Prescriptions: Cephalexin Monohydrate [Keflex 500 mg Capsule] 500 mg PO BID 3 Days #6 capsule Referrals: BALDEMAR SNEED MD [Primary Care Provider] - Follow up tomorrow
[2019-07-10 16:50] LABS: ABSOLUTE LYMPHOCYTES (AUTO) 0.5 10^3/uL (0.5-4.7); ABSOLUTE MONOCYTES (AUTO) 0.1 10^3/uL (0.1-1.4); ABSOLUTE NEUT (AUTO) 7.8 10^3/uL (1.7-8.2); BASOPHILS % (AUTO) 0.3 % (0-2); EOSINOPHILS % (AUTO) 0.1 % (0-6); HEMATOCRIT 36.5 % (36.0-47.0); HEMOGLOBIN 12.5 g/dL (12.0-15.5); LYMPHOCYTES % (AUTO) 5.6 % (13-45); MEAN CORPUSCULAR HEMOGLOBIN 31.1 pg (27.0-33.4); MEAN CORPUSCULAR HGB CONC 34.2 g/dL (32.0-36.0); MEAN CORPUSCULAR VOLUME 91 fl (80-97); MONOCYTES % (AUTO) 1.3 % (3-13); PLATELET COUNT 207 10^3/uL (150-450); RED BLOOD COUNT 4.01 10^6/uL (3.72-5.28); RED CELL DISTRIBUTION WIDTH 13.2 % (11.5-14.0); SEGMENTED NEUTROPHILS % (AUTO) 92.7 % (42-78); TOTAL CELLS COUNTED % (AUTO) 100 %; WHITE BLOOD COUNT 8.4 10^3/uL (4.0-10.5)
[2019-07-10 17:07] LABS: ALBUMIN 3.9 g/dL (3.5-5.0); ALKALINE PHOSPHATASE 88 U/L (38-126); ANION GAP 9 (5-19); ASPARTATE AMINO TRANSFERASE 20 U/L (14-36); BILIRUBIN,TOTAL 0.4 mg/dL (0.2-1.3); BLOOD UREA NITROGEN 17 mg/dL (7-20); CALCIUM 7.3 mg/dL (8.4-10.2); CARBON DIOXIDE 27 mmol/L (22-30); CHLORIDE 101 mmol/L (98-107); GLUCOSE 133 mg/dL (75-110); POTASSIUM 3.6 mmol/L (3.6-5.0); TOTAL PROTEIN 6.4 g/dL (6.3-8.2)
[2019-07-10] MEDS: MAGNESIUM SULFATE/D5W 1 GM/100 ML RTUPB IV SCH ×3 (17:10→18:30)
[2019-07-10 17:51] LABS: APPEARANCE,URINE CLOUDY; BILIRUBIN,URINE NEGATIVE (NEGATIVE); COLOR,URINE YELLOW; GLUCOSE, URINE NEGATIVE (NEGATIVE); KETONES,URINE TRACE mg/dL (NEGATIVE); LEUKOCYTE ESTERASE,URINE MODERATE (NEGATIVE); NITRITE,URINE NEGATIVE (NEGATIVE); PROTEIN,URINE 30 mg/dL (NEGATIVE); URINE SPECIFIC GRAVITY 1.026; UROBILINOGEN,URINE NEGATIVE mg/dL (<2.0)
--- NOTE | 2019-07-10 19:32 | EKG REPORT ---
SEVERITY:- ABNORMAL ECG - SINUS RHYTHM PROBABLE POSTERIOR INFARCT : Confirmed by: Fazal Baird MD 10-Jul-2019 19:31:43
[2019-07-10 22:14] VITALS: BP 106/67
== END 2019-07-10 22:13 | disposition home or self-care (01) ==
LOC: ER 15:56
DX: E83.42 Hypomagnesemia (principal); N28.9 Disorder of kidney and ureter, unspecified; R25.3 Fasciculation; K52.9 Noninfective gastroenteritis and colitis, unspecified; F17.200 Nicotine dependence, unspecified, uncomplicated; I10 Essential (primary) hypertension; Z88.1 Allergy status to other antibiotic agents; Z88.0 Allergy status to penicillin; Z91.041 Radiographic dye allergy status; Z88.2 Allergy status to sulfonamides
CPT/HCPCS: 93005; 99283; 96365; 36415; 87086; 83735; 85025; 87088; 80053; 81001; 87186; 93010; J3475

== ENCOUNTER → 2019-07-18 | Outpatient (CLI) | payer BC ==
[2019-07-18 11:58] LABS: POTASSIUM 3.6 mmol/L (3.6-5.0)
== END ==
LOC: OD 10:49
PROVIDERS: ATTEND Specialist
DX: I34.1 Nonrheumatic mitral (valve) prolapse (principal); I47.1 Supraventricular tachycardia; I10 Essential (primary) hypertension; E78.49 Other hyperlipidemia; E87.6 Hypokalemia; Z79.899 Other long term (current) drug therapy
CPT/HCPCS: 36415; 82330; 83735; 84132

== ENCOUNTER → 2019-07-23 | Outpatient (CLI) | payer BC ==
[2019-07-23 08:39] LABS: CALCIUM 7.7 mg/dL (8.4-10.2); POTASSIUM 3.6 mmol/L (3.6-5.0)
== END ==
LOC: OD 07:38
PROVIDERS: ATTEND Specialist
DX: I34.1 Nonrheumatic mitral (valve) prolapse (principal); I47.1 Supraventricular tachycardia; I10 Essential (primary) hypertension; E78.49 Other hyperlipidemia; E87.6 Hypokalemia; Z79.899 Other long term (current) drug therapy
CPT/HCPCS: 36415; 82310; 82330; 83735; 84132

== ENCOUNTER 2019-08-01 17:10 | Emergency (ER) | payer BC ==
--- NOTE | 2019-08-01 17:55 | ER Document Report ---
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 She reports she had labs done this morning and her magnesium was 0.8. Dr. Javier told her to come to the emergency department for infusion. She reports she is been here last couple weeks for magnesium infusion. She reports that her medication Asacol was recently doubled and now she is having swelling in her legs. She denies fever vomiting. Denies COVID exposure. Has not been out of the state of the country. Lives at home with her he is not sick. I have greeted and performed a rapid initial assessment of this patient. A comprehensive ED assessment and evaluation of the patient, analysis of test results and completion of the medical decision making process will be conducted by additional ED providers. TRAVEL OUTSIDE OF THE [place] IN LAST 30 DAYS: No - Related Data Allergies/Adverse Reactions: shellfish derived Allergy (Severe, Verified 08/01/19 17:52) ciprofloxacin [Ciprofloxacin] Allergy (Intermediate, Verified 07/02/19 14:08) Flushing erythromycin lactobionate [From Erythrocin] Allergy (Intermediate, Verified 07/02/19 14:08) Flushing nitrofurantoin [From Macrodantin] Allergy (Intermediate, Verified 07/02/19 14:08) Difficulty breathing Penicillins Allergy (Intermediate, Verified 07/02/19 14:08) Flushing Iodinated Contrast Media Allergy (Verified 07/02/19 14:13) Sulfa (Sulfonamide Antibiotics) Allergy (Verified 07/02/19 14:08) Past Medical History - Past Medical History Cardiac Medical History: Reports: Hx Hypercholesterolemia, Hx Hypertension Denies: Hx Atrial Fibrillation, Hx Coronary Artery Disease, Hx Heart Attack Pulmonary Medical History: Denies: Hx Asthma, Hx Bronchitis, Hx COPD, Hx Pneumonia Neurological Medical History: Denies: Hx Cerebrovascular Accident, Hx Seizures Endocrine Medical History: Denies: Hx Diabetes Mellitus Type 1, Hx Diabetes Mellitus Type 2, Hx Hyperthyroidism, Hx Hypothyroidism Renal/ Medical History: Reports: Hx Kidney Stones. Denies: Hx Peritoneal Dialysis GI Medical History: Reports: Hx Ulcerative Colitis. Denies: Hx Cirrhosis, Hx Crohn's Disease, Hx Hepatitis Musculoskeltal Medical History: Reports Hx Arthritis - Ostearthritis-everywhere, Denies Hx Gout Skin Medical History: Denies Hx Eczema, Denies Hx Psoriasis Infectious Medical History: Denies: Hx Hepatitis Past Surgical History: Reports: Hx Hysterectomy, Hx Tonsillectomy, Other - Colonoscopy - Immunizations Hx Diphtheria, Pertussis, Tetanus Vaccination: Yes Physical Exam - Vital signs Vitals: Temp Pulse Resp BP Pulse Ox 98.1 F 69 16 136/77 H 98 08/01/19 17:15 08/01/19 17:15 08/01/19 17:15 08/01/19 17:15 08/01/19 17:15 Course - Vital Signs Vital signs: Temp Pulse Resp BP Pulse Ox 98.1 F 69 16 136/77 H 98 08/01/19 17:15 08/01/19 17:15 08/01/19 17:15 08/01/19 17:15 08/01/19 17:15 Doctor's Discharge - Discharge Referrals: BALDEMAR SNEED MD [Primary Care Provider] - Follow up as needed
[2019-08-01 19:00] LABS: ALBUMIN 3.5 g/dL (3.5-5.0); ALKALINE PHOSPHATASE 74 U/L (38-126); ASPARTATE AMINO TRANSFERASE 25 U/L (14-36); BILIRUBIN,TOTAL 0.4 mg/dL (0.2-1.3); BLOOD UREA NITROGEN 20 mg/dL (7-20); CALCIUM 7.4 mg/dL (8.4-10.2); CARBON DIOXIDE 29 mmol/L (22-30); CHLORIDE 106 mmol/L (98-107); GLUCOSE 77 mg/dL (75-110); POTASSIUM 3.7 mmol/L (3.6-5.0); TOTAL PROTEIN 5.6 g/dL (6.3-8.2)
[2019-08-01 19:06] LABS: ANION GAP 4 (5-19)
[2019-08-01 19:44] LABS: ABSOLUTE BASOPHILS # (AUTO) 0.1 10^3/uL (0.0-0.2); ABSOLUTE EOSINOPHILS # (AUTO) 0.1 10^3/uL (0.0-0.6); ABSOLUTE LYMPHOCYTES (AUTO) 1.5 10^3/uL (0.5-4.7); ABSOLUTE MONOCYTES (AUTO) 0.4 10^3/uL (0.1-1.4); ABSOLUTE NEUT (AUTO) 7.1 10^3/uL (1.7-8.2); BASOPHILS % (AUTO) 0.6 % (0-2); EOSINOPHILS % (AUTO) 0.7 % (0-6); MEAN CORPUSCULAR HEMOGLOBIN 32.1 pg (27.0-33.4); MEAN CORPUSCULAR HGB CONC 33.4 g/dL (32.0-36.0); MONOCYTES % (AUTO) 4.6 % (3-13); PLATELET COUNT 148 10^3/uL (150-450); RED BLOOD COUNT 3.74 10^6/uL (3.72-5.28); RED CELL DISTRIBUTION WIDTH 15.3 % (11.5-14.0); SEGMENTED NEUTROPHILS % (AUTO) 78.1 % (42-78); TOTAL CELLS COUNTED % (AUTO) 100 %; WHITE BLOOD COUNT 9.1 10^3/uL (4.0-10.5)
[2019-08-01 19:49] LABS: MEAN CORPUSCULAR VOLUME 96 fl (80-97)
--- NOTE | 2019-08-01 20:11 | ER Document Report ---
ED General - General Chief Complaint: Abnormal Lab Results Stated Complaint: ABNORMAL LABS Time Seen by Provider: 08/01/19 17:43 Primary Care Provider: BALDEMAR SNEED MD [Primary Care Provider] - Follow up as needed Mode of Arrival: Ambulatory Information source: Patient Notes: 64-year-old woman presents to the emergency department history of seen for abnormal lab findings. Apparently her magnesium was noted to be 0.9 by her primary physician. She was directed to come to the emergency department for infusion of magnesium. Patient denies a.m. normal symptoms, no muscle spasms or muscle twitching, she denies tachycardia or other cardiac arrhythmia. She does complain of bilateral lower extremity swelling over the past 3 weeks. She has related to a AcipHex therapy which she began 3 weeks ago. TRAVEL OUTSIDE OF THE [place] IN LAST 30 DAYS: No - Related Data Allergies/Adverse Reactions: shellfish derived Allergy (Severe, Verified 08/01/19 17:52) ciprofloxacin [Ciprofloxacin] Allergy (Intermediate, Verified 07/02/19 14:08) Flushing erythromycin lactobionate [From Erythrocin] Allergy (Intermediate, Verified 07/02/19 14:08) Flushing nitrofurantoin [From Macrodantin] Allergy (Intermediate, Verified 07/02/19 14:08) Difficulty breathing Penicillins Allergy (Intermediate, Verified 07/02/19 14:08) Flushing Iodinated Contrast Media Allergy (Verified 07/02/19 14:13) Sulfa (Sulfonamide Antibiotics) Allergy (Verified 07/02/19 14:08) Past Medical History - General Information source: Patient - Social History Smoking Status: Current Every Day Smoker Family History: Reviewed & Not Pertinent Patient has homicidal ideation: No - Past Medical History Cardiac Medical History: Reports: Hx Hypercholesterolemia, Hx Hypertension Denies: Hx Atrial Fibrillation, Hx Coronary Artery Disease, Hx Heart Attack Pulmonary Medical History: Denies: Hx Asthma, Hx Bronchitis, Hx COPD, Hx Pneumonia Neurological Medical History: Denies: Hx Cerebrovascular Accident, Hx Seizures Endocrine Medical History: Denies: Hx Diabetes Mellitus Type 1, Hx Diabetes Mellitus Type 2, Hx Hyperthyroidism, Hx Hypothyroidism Renal/ Medical History: Reports: Hx Kidney Stones. Denies: Hx Peritoneal Dialysis GI Medical History: Reports: Hx Ulcerative Colitis. Denies: Hx Cirrhosis, Hx Crohn's Disease, Hx Hepatitis Musculoskeletal Medical History: Reports Hx Arthritis - Ostearthritis- everywhere, Denies Hx Gout Skin Medical History: Denies Hx Eczema, Denies Hx Psoriasis Infectious Medical History: Denies: Hx Hepatitis Past Surgical History: Reports: Hx Hysterectomy, Hx Tonsillectomy, Other - Colonoscopy - Immunizations Hx Diphtheria, Pertussis, Tetanus Vaccination: Yes Review of Systems - Review of Systems Notes: Constitutional: Negative for fever. HENT: Negative for sore throat. Eyes: Negative for visual changes. Cardiovascular: Negative for chest pain. Respiratory: Negative for shortness of breath. Gastrointestinal: Negative for abdominal pain, vomiting or diarrhea. Genitourinary: Negative for dysuria. Musculoskeletal: + Bilateral lower extremity edema Skin: Negative for rash. Neurological: Negative for headaches, weakness or numbness. 10 point ROS negative except as marked above and in HPI. Physical Exam - Vital signs Vitals: Temp Pulse Resp BP Pulse Ox 98.1 F 69 16 136/77 H 98 08/01/19 17:15 08/01/19 17:15 08/01/19 17:15 08/01/19 17:15 08/01/19 17:15 - Notes Notes: PHYSICAL EXAMINATION: Physical Exam: General: Well-nourished well-developed 64-year-old woman in no acute distress HEENT: NC/AT, pupils equal round and reactive to light, MM moist,nares clear, oropharynx clear, airway patent Neck: supple, no adenopathy, no masses. Good range of motion Lungs: clear, no wheezing, no rales no rhonchi CVS: Regular rate and rhythm no murmur gallop or rub Abdomen: Soft, active, nontender, no masses, no hepatosplenomegaly Ext: 2+ pitting edema bilateral lower extremities ankle and feet. Neuro: Alert and responsive, moving all 4 extremities on command, cranial nerves intact, no focal findings Skin: Intact no open lesions, no rash PSYCH: Normal mood, normal affect. Course - Re-evaluation Re-evalutation: 08/01/19 21:59 Patient received IV magnesium bolus, total of 3 g. I have asked her should follow-up with her primary care doctor for further management. She has had some diarrhea as well as taking a diuretic at this time. Given her repeat episodes of magnesium loss, urine mag level might be performed, if the patient has idiopathic renal magnesium wasting, amiloride may be a reasonable medication to try. I did discuss this flex with the patient and she will discuss it with her primary care doctor. - Vital Signs Vital signs: Temp Pulse Resp BP Pulse Ox 98.1 F 69 16 136/77 H 98 08/01/19 17:48 08/01/19 17:15 08/01/19 17:15 08/01/19 17:15 08/01/19 17:15 - Laboratory Result Diagrams: 08/01/19 19:35 08/01/19 18:21 Laboratory results interpreted by me: 08/01/19 08/01/19 18:21 19:35 RDW 15.3 H Plt Count 148 L Seg Neutrophils % 78.1 H Anion Gap 4 L Est GFR (MDRD) Non-Af 55 L Calcium 7.4 L Magnesium 0.9 L* ALT 56 H Total Protein 5.6 L Discharge - Discharge Clinical Impression: Hypomagnesemia, Bilateral lower extremity edema Condition: Good Disposition: HOME, SELF-CARE Additional Instructions: You were treated for low magnesium level in the emergency department tonight. You were given 3 g of IV magnesium. Given that this is become a recurrent problem and a question of renal magnesium wasting may be a possibility. Suggested that a urine mag level should be done and the potassium sparing di uretic amiloride may be useful in such cases. You may discussed use of amiloride with your primary care doctor. If you have further difficulties or other concerns you may return to the emergency department. HOME CARE INSTRUCTIONS & INFORMATION: Thank you for choosing us for your medical needs. We hope you're satisfied with the care you received. After you leave, you must properly care for your problem and, at the same time, observe its progress. Any condition can change. Some illnesses can change rapidly over hours or days. If your condition worsens, return to the Emergency Department or see your physician promptly. ABOUT YOUR X-RAYS AND EKG'S: If you had an EKG or X-rays taken, they have been read by the Emergency Physician. The X-rays and EKG's will also be read by a Radiologist or Doctor Podiatric Medicine within 24 hours. If discrepancies are noted, you will be notified by telephone. Please be certain the ED has a correct telephone number & address where you can be reached. Also, realize that some fractures or abnormalities do not show up on initial X-rays. If your symptoms continue, see your physician. ABOUT YOUR LABORATORY TEST: If you had laboratory tests, the results have been reviewed by the Emergency Physician. Some test results (for example cultures) may not be available for several days. You will be contacted if any test result shows you need additional treatment. Please be certain the ED has a correct telephone number and address where you can be reached. ABOUT YOUR MEDICATIONS: You will receive instructions on how to take your medicine on the prescription label you receive. Additional information may be provided by the Pharmacy. If you have questions afterwards, call the ED for clarification or further instructions. Some prescribed medications may cause drowsiness. Do not perform tasks such as driving a car or operating machinery without consulting your Pharmacist. If you feel you need a refill of pain medication, your condition will need re-evaluation. Please do not call for a refill of any medication. ABOUT YOUR SIGNATURE: Signature of this document acknowledges to followin. Understanding that you received emergency treatment and that you may be released before al medical problems are known or treated. Please be certain the ED has a correct phone number & address where you can be reached. 2. Acknowledgement that you will arrange for follow-up care as recommended. 3. Authorization for the Emergency Physician to provide information to your follow-up Physician in order to maximize your care. AT ANY TIME, IF YOUR SYMPTOMS CHANGE SIGNIFICANTLY OR WORSEN OR YOU DEVELOP NEW SYMPTOMS, RETURN TO THE EMERGENCY DEPARTMENT IMMEDIATELY FOR RE-EVALUATION. OUR GOAL IS TO PROVIDE EXCELLENT MEDICAL CARE! WE HOPE THAT WE HAVE MET YOUR EXPECTATIONS DURING YOUR EMERGENCY DEPARTMENT VISIT AND THAT YOU FEEL YOU HAVE RECEIVED EXCELLENT CARE! Referrals: BALDEMAR SNEED MD [Primary Care Provider] - Follow up as needed
[2019-08-01] MEDS: MAGNESIUM SULFATE/D5W 1 GM/100 ML RTUPB IV SCH ×3 (20:37→22:54)
[2019-08-02 00:11] VITALS: BP 104/74
--- NOTE | 2019-08-04 22:31 | EKG REPORT ---
SEVERITY:- NORMAL ECG - SINUS RHYTHM : Confirmed by: Angelika Ndiaye 04-Aug-2019 22:30:16
== END 2019-08-02 00:17 | disposition home or self-care (01) ==
LOC: ER 17:10
DX: E83.42 Hypomagnesemia (principal); M79.89 Other specified soft tissue disorders; E78.00 Pure hypercholesterolemia, unspecified; I10 Essential (primary) hypertension; Z88.0 Allergy status to penicillin; Z88.2 Allergy status to sulfonamides; Z87.442 Personal history of urinary calculi; Z90.710 Acquired absence of both cervix and uterus; Z91.013 Allergy to seafood
CPT/HCPCS: 99283; 96365; 96366; 36415; 83735; 85025; 80053; J3475; 93005; 93010

== ENCOUNTER → 2019-08-01 | Outpatient (CLI) | payer BC ==
[2019-08-01 11:49] LABS: CALCIUM 7.6 mg/dL (8.4-10.2); POTASSIUM 3.9 mmol/L (3.6-5.0)
== END ==
LOC: OD 10:48
PROVIDERS: ATTEND Specialist
DX: I34.1 Nonrheumatic mitral (valve) prolapse (principal); I47.1 Supraventricular tachycardia; I10 Essential (primary) hypertension; E78.49 Other hyperlipidemia; E87.6 Hypokalemia; Z79.899 Other long term (current) drug therapy
CPT/HCPCS: 36415; 82310; 82330; 83735; 84132